=== PATIENT | female | born 1950 | race Caucasian/White ===

== ENCOUNTER → 2021-10-03 11:14 | Outpatient (BNVA) | payer MEDICARE, BC, SELFPAY | PROVIDERS: PCP Family Medicine; Referring Provider Family Medicine; Visit Provider Nurse Practitioner Gerontology | DX: N39.46 Mixed incontinence (principal); E11.9 Type 2 diabetes mellitus without complications | CPT/HCPCS: 99204 ==

== ENCOUNTER → 2021-10-24 13:48 | Outpatient (BNVA) | payer MEDICARE, BC, SELFPAY | PROVIDERS: PCP Family Medicine; Referring Provider Family Medicine; Visit Provider Nurse Practitioner Gerontology | DX: N39.46 Mixed incontinence (principal); Z79.899 Other long term (current) drug therapy | CPT/HCPCS: 99214 ==

== ENCOUNTER → 2022-01-01 15:44 | Outpatient (BNVA) | payer MEDICARE, BC, SELFPAY | PROVIDERS: PCP Family Medicine; Visit Provider Nurse Practitioner Gerontology | DX: N39.46 Mixed incontinence (principal) | CPT/HCPCS: 99214 ==

== ENCOUNTER → 2022-03-13 15:08 | Outpatient (BNVA) | payer MEDICARE, BC, SELFPAY | PROVIDERS: PCP Family Medicine; Referring Provider Family Medicine; Visit Provider Nurse Practitioner Gerontology | DX: N39.46 Mixed incontinence (principal); R31.0 Gross hematuria; N20.0 Calculus of kidney | CPT/HCPCS: 51798; 81003; 99214 ==

== ENCOUNTER 2022-03-13 18:17 | Outpatient (REF) | payer MEDICARE, BC, SELFPAY | END 2022-03-13 18:18 | disposition home or self-care (01) | LOC: LBN 18:17 | PROVIDERS: PCP Family Medicine; Visit Provider Nurse Practitioner Gerontology | DX: N39.0 Urinary tract infection, site not specified (principal); N39.3 Stress incontinence (female) (male) | CPT/HCPCS: 87086 ==

== ENCOUNTER 2022-03-19 01:20 | Outpatient (CLI) | payer MEDICARE, SELFPAY ==
[2022-03-19 09:36] LABS: Source Nasal/Nares
[2022-03-19 11:41] LABS: COVID-19 PCR Negative (Negative)
== END 2022-03-19 01:21 | disposition home or self-care (01) ==
PROVIDERS: PCP Family Medicine; Visit Provider Urology
DX: Z20.822 Contact with and (suspected) exposure to COVID-19 (principal); Z01.818 Encounter for other preprocedural examination
CPT/HCPCS: 87635; U0005

== ENCOUNTER 2022-03-21 11:16 | Day surgery (SDC) | payer MEDICARE, BC, SELFPAY ==
[2022-03-21] VITALS (13 sets, daily range): BP systolic 71–148; BP diastolic 55–84; PULSE 68–87; RESP 14–26; TEMP 36.1–36.5; TEMPC 36.5; O2SAT 94–98; BMI 39.7
--- NOTE | 2022-03-21 11:28 | W.PM.HP.N ---
Date of service: 03/21/22 Time of Service: 11:29 Assessment and Plan Assessment and plan (1) Hydronephrosis, right: Status: Acute Assessment and plan: We suspect that the right hydronephrosis is due to a right ureteral stone. We will plan on cystoscopy, right retrograde pyelogram and possible ureteroscopy. Since she did have gross hematuria, the cystoscopy will also allow us to ensure she has no evidence of bladder cancer. History of Present Illness History of Present Illness Chief Complaint: Right hydronephrosis Narrative: Is a 71-year-old woman who has been followed in our office for issues with urinary incontinence. She has pelvic prolapse and has a pessary in place She was evaluated at another facility for gross hematuria and left-sided flank pain. The CT scan demonstrated a nonobstructing right kidney stone. She then developed some right sided pain and an increased serum creatinine. A renal ultrasound showed new onset of right hydronephrosis which was presumably due to the previously identified right kidney stone migrating into the right ureter. She presents now for anoscopy, right retrograde pyelogram, right ureteroscopy and stone manipulation Review of Systems Narrative: No fevers or chills No vision change or dysphasia Hx diabetes. No thyroid dysfunction Shortness of breath related to COPD. No hemoptysis No chest pain or palpitations Hx GERD. No hepatitis, ulcers, jaundice No seizures, strokes or peripheral neuropathy No bleeding disorders or anemia Chronic back pain, arthralgia. No hx gout PFSH All Active Problems (Updated 03/21/22 @ 11:53 by Suleman Valera MD) Hydronephrosis, right (Acute) Bladder prolapse (Acute) Stress incontinence (female) (male) (Acute) Obesity (Chronic) Mixed stress and urge urinary incontinence (Acute) Medical History (Updated 03/21/22 @ 11:53 by Suleman Valera MD) Depression Diabetes mellitus type 2, diet-controlled Family hx of colon cancer Mother, 85 Generalized osteoarthritis of multiple sites Spine, feet, shoulders GERD (gastroesophageal reflux disease) Glucose intolerance (impaired glucose tolerance) History of cervical dysplasia Hyperlipidemia Obstructive sleep apnea on CPAP Presence of pessary Right shoulder, extensive tendonitis Supraspinatus tear, conservative management Spinal stenosis Urinary incontinence Surgical History Cholecystectomy (10/13/73) Colonoscopy - MAC (07/01/16) History of cataract extraction Family History Mother Colon cancer Diabetes Osteoporosis CAD (coronary artery disease) Father Diabetes PUD (peptic ulcer disease) Brother [facility] (myocardial infarction) Social History Smoking/Tobacco Use Status: Never Smoking risk assessment performed?: Yes Alcohol Intake: current Alcohol Intake frequency: holidays/special occasions only Drug use: Never Substance use type: does not use Do you feel safe at home: Yes Do you feel safe in your relationship?: Yes History History 2 Para 2 Hx # Term Pregnancies 2 Multiple births Hx # Pregnancies 0 Ectopic pregnancies AB induced 0 Hx Number of Living Children 2 AB spontaneous 0 Meds Allergies and Home Medications Allergies Allergy/AdvReac Type Severity Reaction Status Date / Time gabapentin AdvReac increased Verified 03/21/22 11:26 falls at higher doses metformin AdvReac gas, Verified 03/21/22 11:26 bloating, diarrhea Home Medications Medication Instructions Recorded Confirmed Type Cymbalta 60 mg capsule,delayed 60 mg PO DAILY 06/04/16 03/21/22 History release (duloxetine) Tylenol 325 mg tablet 650 mg PO Q6H PRN 06/04/16 03/21/22 History (acetaminophen) multivitamin 1 ea PO DAILY 06/04/16 03/21/22 History omeprazole 20 mg capsule,delayed 20 mg PO DAILY 06/04/16 03/21/22 History release pravastatin 40 mg tablet 40 mg PO DAILY 06/04/16 03/21/22 History bupropion HCl 150 mg 24 hr tablet, 150 mg PO QAM 06/26/21 03/21/22 History extended release lisinopril 10 mg tablet 10 mg PO DAILY 06/26/21 03/21/22 History Celebrex 200 mg capsule (celecoxib) 400 mg PO DAILY 08/28/21 03/21/22 History ascorbic acid (vitamin C) 250 mg 1 g PO DAILY 08/28/21 03/21/22 History tablet melatonin 5 mg capsule 5 mg PO HS PRN 08/28/21 03/21/22 History glipizide 5 mg tablet 20 mg PO DAILY 09/17/21 03/21/22 History mirabegron 25 mg tablet,extended 25 mg PO DAILY #28 tabs 01/01/22 03/21/22 Rx release 24 hr (Myrbetriq) tamsulosin 0.4 mg capsule (Flomax) 0.4 mg PO DAILY #7 caps 03/13/22 03/21/22 Rx Exam Const General: cooperative Neck Neck: supple Resp Effort & Inspection: normal respiratory effort Auscultation: clear to auscultation bilaterally Cardio Rate: regular rate Rhythm: regular rhythm GI Inspection: obesity Palpation: soft and no masses Neuro General: patient alert, patient awake and patient oriented x3
--- NOTE | 2022-03-21 11:34 | W.ANESPRE ---
General Info Date of Service Date Performed: 03/21/22 Height: 5 ft 6 in Weight: 111.811 kg Body Mass Index (BMI): 39.7 Surgical Procedure: Operation Date: 03/21/22 13:10 Proposed Procedure Side Surgeon p Cystoscopy/Possible Laser/Retrograde/Ureteroscopy/Possible Stent Right Suleman Valera MD Pre-Op Diagnosis Post-Op Diagnosis Gross hematuria Kidney calculi Meds Allergies and Home Medications Allergies Allergy/AdvReac Type Severity Reaction Status Date / Time gabapentin AdvReac increased Verified 03/21/22 11:26 falls at higher doses metformin AdvReac gas, Verified 03/21/22 11:26 bloating, diarrhea Home Medication Medication Instructions Recorded Cymbalta 60 mg capsule,delayed 60 mg PO DAILY 06/04/16 release (duloxetine) Tylenol 325 mg tablet 650 mg PO Q6H PRN 06/04/16 (acetaminophen) multivitamin 1 ea PO DAILY 06/04/16 omeprazole 20 mg capsule,delayed 20 mg PO DAILY 06/04/16 release pravastatin 40 mg tablet 40 mg PO DAILY 06/04/16 bupropion HCl 150 mg 24 hr tablet, 150 mg PO QAM 06/26/21 extended release lisinopril 10 mg tablet 10 mg PO DAILY 06/26/21 Celebrex 200 mg capsule (celecoxib) 400 mg PO DAILY 08/28/21 ascorbic acid (vitamin C) 250 mg 1 g PO DAILY 08/28/21 tablet melatonin 5 mg capsule 5 mg PO HS PRN 08/28/21 glipizide 5 mg tablet 20 mg PO DAILY 09/17/21 mirabegron 25 mg tablet,extended 25 mg PO DAILY #28 tabs 01/01/22 release 24 hr (Myrbetriq) tamsulosin 0.4 mg capsule (Flomax) 0.4 mg PO DAILY #7 caps 03/13/22 Current Visit Medications: Current Medications Generic Name Dose Route Start Last Admin Trade Name Freq PRN Reason Stop Dose Admin Ringer's Solution 1,000 mls @ 80 mls/hr 03/21/22 06:00 IV 04/19/22 23:59 INFUSION NOAM Cefazolin Sodium/Dextrose 2 gm in 50 mls @ 100 mls/hr 03/21/22 06:00 Ancef Duplex IVPB PREOP NOAM IV Miscellaneous Supplies 1 each 03/21/22 06:00 Iv Access IV 04/19/22 23:59 DIRECTED NOAM Sodium Chloride 0 ml 03/21/22 06:00 Normal Saline Flush 10 Ml Syr IV 04/19/22 23:59 PRN PRN Sodium Chloride 0 ml 03/21/22 06:00 Normal Saline 10 Ml Vial IJ 04/19/22 23:59 DIRECTED PRN Sterile Water 0 ml 03/21/22 06:00 Water,Injection,Sterile 10 Ml Vial IJ 04/19/22 23:59 DIRECTED PRN PFSH Active Problems Active Problems: Problem Status Onset Code Bladder prolapse Stress incontinence (female) (male) N39.3 Obesity E66.9 Mixed stress and urge urinary incontinence N39.46 Medical History Medical History (Updated 03/21/22 @ 11:53 by Suleman Valera MD) Depression Diabetes mellitus type 2, diet-controlled Family hx of colon cancer Mother, 85 Generalized osteoarthritis of multiple sites Spine, feet, shoulders GERD (gastroesophageal reflux disease) Glucose intolerance (impaired glucose tolerance) History of cervical dysplasia Hyperlipidemia Obstructive sleep apnea on CPAP Presence of pessary Right shoulder, extensive tendonitis Supraspinatus tear, conservative management Spinal stenosis Urinary incontinence Surgical History Surgical History Cholecystectomy (10/13/73) Colonoscopy - MAC (07/01/16) History of cataract extraction Tobacco Smoking/Tobacco Use Status: Never Alcohol Alcohol Intake: current Alcohol intake frequency: holidays/special occasions only Substance Use Substance use: Never Substance use type: does not use Prental History History 2 Para 2 Hx # Term Pregnancies 2 Multiple births Hx # Pregnancies 0 Ectopic pregnancies AB induced 0 Hx Number of Living Children 2 AB spontaneous 0 Vital Signs and Lab Results Lab Results Blood Type / Crossmatch: No Data to Display Complete Blood Count: No Data to Display Complete Metabolic Panel: No Data to Display Liver Function Panel: No Data to Display Coagulation Panel: No Data to Display Cardiac Panel: No Data to Display Arterial Blood Gas: No Data to Display Venous Blood Gas: No Data to Display Pancreas Panel: No Data to Display Thyroid Panel: No Data to Display Infectious Disease: Coronavirus (COVID-19)(PCR) Negative (Negative) 03/19/22 08:30 Coronavirus 2019 Source Nasal/Nares 03/19/22 08:30 Blood Cultures: No Data to Display Toxicology Panel: No Data to Display Anesthesia Assessment and Plan Anesthesia History Personal History: No History of Anesthesia Complications Family History: No Family History of Anesthesia Complications Exercise Tolerance Exercise Tolerance: Metabolic Equivalents>4 Pertinent Negatives Pertinent Negatives: No Symptoms of GERD (Controlled with meds, took this am), No Major Cardiovascular Symptoms or Complaints, No Major Pulmonary Symptoms or Complaints and No History of CVA/TIA Cardiac & Pulmonary Exam Cardiac Exam: Normal S1/S2 Heart Sounds Pulmonary Exam: Clear Bilateral Breath Sounds Implantable Cardiac Device Does patient have a Pacemaker or an ICD?: No Airway Exam Known Difficult Airway: No Mallampati Class: 1 Mouth Opening: Normal (> 3cm) Thyromental Distance: Greater than 3 cm Neck Range of Motion: Full ROM Neck Circumference: Normal Teeth Condition: Normal Dentition ASA Classification ASA Score: ASA 2 Emergency Case?: No NPO Status NPO Status: NPO Clears >2 hours, Solids >8 hours Anesthesia Plan Resuscitation Status: Full Code Anesthesia Technique: General Anesthesia Airway Planned: LMA Monitors Used: Standard Monitors
[2022-03-21] MEDS: Lactated Ringers 1,000 ML 80 ML IV (12:17)
[2022-03-21] MEDS: ceFAZolin 2 GM/50 ML BAG IVPB (12:24)
[2022-03-21] MEDS: Lidocaine 2% Jelly 6 ML SYR (12:49)
[2022-03-21] MEDS: Omnipaque 300 MG/ML 50 ML BTL (13:21)
--- NOTE | 2022-03-21 13:22 | DI.RAD_ITS ---
Exam(s) XR RETROGRADE IN OR EXAM: XR RETROGRADE IN OR CLINICAL HISTORY: right kidney calculi. TECHNIQUE: 2D digital imaging was performed. COMPARISON: No exams were available for comparison FINDINGS: Fluoroscopy provided during urologic procedure. See procedure report for details Total fluoroscopy time 23.6 seconds; cumulative dose 9.3655mGy IMPRESSION: DATA REPOSITORY: RADIATION DOSE DELIVERED:
--- NOTE | 2022-03-21 13:27 | W.PM.DSUDISC ---
Discharge Plan Disposition Patient Disposition: HOME Condition: Stable Discharge Details Reason For Visit: ureteroscopy Attending Provider: Suleman Valera Primary Care Provider: Erin Mei Home Meds and New Rx's Prescriptions: New tramadol 50 mg tablet 50 mg PO Q8H PRN (Reason: pain) Qty: 10 0RF No Action ascorbic acid (vitamin C) 250 mg tablet 1 g PO DAILY melatonin 5 mg capsule 5 mg PO HS PRN lisinopril 10 mg tablet 10 mg PO DAILY bupropion HCl 150 mg tablet extended release 24 hr 150 mg PO QAM glipizide 5 mg tablet 20 mg PO DAILY Myrbetriq 25 mg tablet extended release 24 hr 25 mg PO DAILY Qty: 28 0RF Rx Instructions: Samples tamsulosin [Flomax] 0.4 mg capsule 0.4 mg PO DAILY Qty: 7 0RF acetaminophen [Tylenol] 325 MG tablet 650 mg PO Q6H PRN pravastatin 40 MG tablet 40 mg PO DAILY omeprazole 20 MG capsule,delayed release(DR/EC) 20 mg PO DAILY multivitamin 1 EACH capsule 1 ea PO DAILY duloxetine [Cymbalta] 60 MG capsule,delayed release(DR/EC) 60 mg PO DAILY celecoxib [Celebrex] 200 mg capsule 400 mg PO DAILY Discharge Instructions Additional Instructions: no need to strain urine pt has stent in place - expect some visible blood in urine and discomfort with urination my office will call pt to schedule return to operating room to remove stent, repeat ureteroscopy and remove any leftover stone fragments Activity:: Activity as Tolerated Shower/Bathe:: 24 hours Diet:: As Tolerated Discharge Orders Discharge Orders: Discharge Order (Routine); Ordered 03/21/22 Ordered By: Suleman Valera DS: Diagnosis Discharge Diagnosis (1) Hydronephrosis, right: Status: Acute
--- NOTE | 2022-03-21 13:33 | ROE_ITS ---
Date of service: 03/21/22 Time of Service: 13:34 Operative Note Operative Note DATE OF PROCEDURE: 03/21/22 PRE-OP DIAGNOSIS: right hydronephrosis POST-OP DIAGNOSIS: same right ureteral stone PROCEDURE: cystoscopy, right retrograde pyelogram, right ureteroscopy with holmium laser lithotripsy, insert right ureteral stent SURGEON: Suleman Valera ANESTHESIA TYPE: General LMA/ETT Refer to Anesthesia Record ESTIMATED BLOOD LOSS: 20 PATHOLOGY: none sent COMPLICATIONS: None Patient was transported to: PACU Patient's condition: stable Implants: 7 thai by 22 to 30 cm right ureteral stent Indications: This is a 71-year-old woman who initially presented to an outside emergency department with left-sided flank pain. She was identified as having hematuria. She underwent evaluation with a noncontrast CT scan. A nonobstructing 4 mm stone was found in the right kidney. She then developed a right sided pain and a renal ultrasound was performed. She had new onset of right-sided hydronephrosis and what was described as a 7 mm stone in the lower pole of the right kidney. No right ureteral jet was seen. It was presumed that the previously identified right kidney stone had moved into the right ureter. She presents for stone manipulation Findings: Large right distal ureteral stone with hydronephrosis above the level of the stone Procedure Description: The patient was given preoperative IV antibiotics and brought to the operating room on 03/21/2022. After successful induction of general anesthesia, she was placed in the dorsal lithotomy position. Her genitalia was prepped and draped. 2% Xylocaine jelly was instilled into the urethra to act as a local anesthetic. I was unable to pass the 22 [place] cystoscope into the urethra directly, so we dilated the urethra using Pettis sounds. The scope was then passed into the bladder. The bladder was inspected with a 30 degree lens. No bladder tumors or stones were seen. The base of the bladder had descended as is consistent with a cystocele. Both ureteral orifices appeared normal. No blood was seen coming from either side. The right orifice was cannulated with a 6 [place] access catheter. A retrograde pyelogram was obtained by injecting Omnipaque through the access catheter under fluoroscopic guidance. A large filling defect was seen within the right distal ureter. The ureter above the level of this filling defect was dilated. I was then able to pass a guidewire through the access catheter and maneuvered the wire up the remainder of the ureter. Once I did so, a hydronephrotic drip was identified. The cystoscope was removed and a semirigid ureteroscope was introduced. I passed the scope through the urethra and into the right ureteral orifice. I was able to advance the scope and a large yellow stone was visualized within the distal right ureter. The stone was too large to grasp and remove on its own. I partially treated the stone using our holmium laser. We used a 365 holmium lase r fiber with a power setting of 800 and a rate of 8. The stone fragmented quite nicely. Because of the hydronephrotic drip and stone debris, visibility became challenging. I elected to place a ureteral stent and make a plan to return to the operating room for stent removal and repeat ureteroscopy to address any residual fragments. I chose a 7 [place] variable length stent and advanced it over the indwelling wire. The proximal end of the stent was curled in the collecting system and the distal end was curled within the bladder. The positioning of the stent was confirmed both fluoroscopically and cystoscopically. She tolerated the procedure well with no complications.
[2022-03-21] MEDS: Normal Saline 10 ML VIAL IJ (13:46)
[2022-03-21] MEDS: HYDROmorphone 2 MG/ML VIAL IVP ×2 (13:46→14:01)
[2022-03-21] MEDS: Ketorolac 15 MG/ML VIAL IVP (13:54)
[2022-03-21] MEDS: fentaNYL 100 MCG/2 ML VIAL IVP (14:13)
[2022-03-21] MEDS: Phenazopyridine 200 MG TAB PO (14:37)
--- NOTE | 2022-03-21 15:15 | RT.EKG_ITS ---
APPROVED REPORT Exam: Resting ECG Reason for Exam: STAT/Chesp Pain. Patient Location: O HR:71 bpm ECG Measurements Heart Rate 71 AXIS SC 182 P 53 QRSd 98 QRS -4 QT 370 T 34 QTc 402 Conclusion Sinus rhythm...normal P axis, V-rate 60- 99 Normal Electrocardiogram
[2022-03-21] MEDS: Aspirin 81 MG CHEW 324 MG PO (15:36)
--- NOTE | 2022-03-21 16:05 | PDOC.ANES ---
Anesthesia Note Report Anesthesia Note: 15:25 Anesthesia at beside to assess patient for sub-sternal chest pain, reported 05/22. RN ordered EKG and respirtory currently at bedside. Dr. Valera made aware of patient's complaints. Aspirin 325 ordered and administered per record. Case discussed with ER physician, plan to transfer patient to ER for further evaluation. Full verbal report given at ER bedside, patient verbalizes understanding.
--- NOTE | 2022-03-21 16:13 | W.ANESPOSTOP ---
Postoperative Evaluation Date, Time and Location Date Performed: 03/21/22 Time Performed: 15:40 Patient Location: Day Surgery Unit Vital Signs Most Recent Imported Vital Signs: Most Recent Vital Signs Temp Pulse Resp BP Pulse Ox 36.2 C L 71 14 115/72 97 03/21/22 15:33 03/21/22 15:33 03/21/22 15:33 03/21/22 15:33 03/21/22 15:33 Most Recent Manually Entered Vital Signs: Adult Blood Pressure: 115/72 Heart Rate: 71 Respirations: 14 Oxygen Saturation (%): 97 Temperature (C): 36.5 C Pain Score (0-10 Scale): 8 (Chest Pain) Pain Score Most Recent Pain Score: Most Recent Pain Score Pain Level 0 03/21/22 15:33 Assessment Mental Status: Awake (Alert & Oriented to Patient Baseline) Airway and Respiratory Function: Patent airway with normal (patient baseline) respiratory exam Cardiovascular Function: Hemodynamically Stable Hydration Status: Adequately Hydrated Nausea & Vomiting: No Nausea or Vomiting Pain: Pain is Moderate or Severe Postoperative Pain Management: Other (Chest pain, new onset, transfer to ER.) Peripheral Nerve Block: Patient did not receive a nerve block
== END 2022-03-21 15:45 | disposition home or self-care (01) ==
PROVIDERS: PCP Family Medicine; Visit Provider Urology
PROC: (CPT 52356; principal; 2022-03-21 13:00)
DX: N13.2 Hydronephrosis with renal and ureteral calculous obstruction (principal); E11.9 Type 2 diabetes mellitus without complications; K21.9 Gastro-esophageal reflux disease without esophagitis; G47.33 Obstructive sleep apnea (adult) (pediatric)
CPT/HCPCS: 52356; 74420; 93005; 93010; J0690; J1885; J3010; Q9967

== ENCOUNTER 2022-03-21 15:37 | Observation (INO) | payer MEDICARE, BC, SELFPAY ==
[2022-03-21] VITALS (32 sets, daily range): BP systolic 102–144; BP diastolic 42–100; PULSE 70–79; RESP 14–27; TEMP 36.4–37.4; O2SAT 95–98
--- NOTE | 2022-03-21 15:30 | RT.EKG_ITS ---
APPROVED REPORT Exam: Resting ECG Reason for Exam: CHEST PAIN Patient Location: E HR:69 bpm ECG Measurements Heart Rate 69 AXIS NV 183 P 48 QRSd 100 QRS -15 QT 371 T 30 QTc 398 Conclusion Sinus rhythm...normal P axis, V-rate 60- 99. Sinus. No STEMI. I have reviewed and interpreted ECG and agree with software generated interpretation.
--- NOTE | 2022-03-21 15:45 | DI.RAD_ITS ---
Exam(s) XR PORTABLE CHEST AP EXAM: XR PORTABLE CHEST AP CLINICAL HISTORY: chest pain. TECHNIQUE: 2D digital imaging was performed. COMPARISON: No exams were available for comparison FINDINGS: Single AP portable view. Right shoulder reverse prosthesis noted. Heart size is upper normal. The mediastinum is not widened. Lungs are clear. No infiltrates nor obvious pleural effusions. IMPRESSION: No acute pulmonary findings on this single AP portable view of the chest. DATA REPOSITORY: RADIATION DOSE DELIVERED: All CT scans at this facility use at least one of these dose optimization techniques: automated exposure control; mA and/or kV adjustment per patient size (includes targeted e xams where dose is matched to clinical indication); or iterative reconstruction.
--- NOTE | 2022-03-21 16:09 | ED.GENADUL_ITS ---
Discharge Plan Disposition Patient Disposition: [facility] INPATIENT Condition: Stable Discharge Details Clinical Impression: Chest pain, Ureterolithiasis, Post surgical complication Primary Care Provider: Erin Mei ED Provider: Ashley Cancino Home Meds and New Rx's Prescriptions: Continued ascorbic acid (vitamin C) 250 mg tablet 1 g PO DAILY melatonin 5 mg capsule 5 mg PO HS PRN lisinopril 10 mg tablet 10 mg PO DAILY bupropion HCl 150 mg tablet extended release 24 hr 150 mg PO QAM glipizide 5 mg tablet 20 mg PO DAILY Myrbetriq 25 mg tablet extended release 24 hr 25 mg PO DAILY Qty: 28 0RF Rx Instructions: Samples tamsulosin [Flomax] 0.4 mg capsule 0.4 mg PO DAILY Qty: 7 0RF acetaminophen [Tylenol] 325 MG tablet 650 mg PO Q6H PRN pravastatin 40 MG tablet 40 mg PO DAILY omeprazole 20 MG capsule,delayed release(DR/EC) 20 mg PO DAILY multivitamin 1 EACH capsule 1 ea PO DAILY duloxetine [Cymbalta] 60 MG capsule,delayed release(DR/EC) 60 mg PO DAILY celecoxib [Celebrex] 200 mg capsule 400 mg PO DAILY tramadol 50 mg tablet 50 mg PO Q8H PRN (Reason: pain) Qty: 10 0RF Medical Decision Making Patient with 2 negative troponins and 2 EKGs do not show acute abnormality Chest x-ray without acute abnormality I did order a D-dimer which was elevated, I ordered a dimer because patient is perioperative and has an elevated creatinine at baseline and so this was a baseline screening tool Creatinine is unfortunately 2 and patient's D-dimer was 20-40 they were unable to perform CTA in the emergency department and VQ scan will unlikely be able to be performed until the following day I do not think patient is in urgent need of imaging as she has not hypoxic, tachycardic, and she has no evidence of DVT clinically My suspicion is quite low but she has PE more concern for cardiac etiology of patient's symptoms given her heart score of 5 Patient has remained asymptomatic in terms of hypotension and chest pain Shared supply with 481 mg aspirin in the OR and therefore this was not repeated She has been pain-free throughout her encounter She has never had stress test She agreeable to admission at this time She is full CODE STATUS Her vitals have been stable in the emergency department I did specifically discussed with Dr. Khalil the admitting hospitalist regarding anticoagulating the patient and given her gross hematuria and postoperative period I think anticoagulating her for PE risk outweighs the benefit at this time and she is able to be closely observed in the hospital I did make several attempts to contact Dr Russell, unfortunately he was unavailable to provide consultation this evening Therefore we will not anticoagulate her at this time and she will have imaging at the discretion of the hospitalist tomorrow At this time she stated her admission Medical Records Medical records reviewed: Yes I reviewed the patient's medical records. Lab Data Lab results reviewed: Yes I reviewed the patient's lab results. HPI General Date/Time Provider Initiated Documentation: 03/21/22 15:42 . HPI Narrative: This 71-year-old female with history of ureterolithiasis, hydronephrosis, diabetes, hypertension, hyperlipidemia presents with report of several episodes of hypotension with subsequent chest pressure shortly after surgery. Patient had cystoscopy with right ureteroscopy with retrograde pyelogram stent on the right today. She received propofol reportedly. In the recovery phase she experienced some episodes of hypotension which resolved with fluids but then subsequent chest pain. She reports this is more of a pressure sensation. She denies any shortness of breath. She denies any pleuritic pain associated. She denies any calf pain or swelling or history of coagulopathy. Has not had chest pain for years reportedly. Denies prior stress test in the past or known coronary artery disease. Does not smoke, drink, or use any illicit drugs. Related Data Home Medications Medication Instructions Recorded Confirmed Cymbalta 60 mg capsule,delayed 60 mg PO DAILY 06/04/16 03/21/22 release (duloxetine) Tylenol 325 mg tablet 650 mg PO Q6H PRN 06/04/16 03/21/22 (acetaminophen) multivitamin 1 ea PO DAILY 06/04/16 03/21/22 omeprazole 20 mg capsule,delayed 20 mg PO DAILY 06/04/16 03/21/22 release pravastatin 40 mg tablet 40 mg PO DAILY 06/04/16 03/21/22 bupropion HCl 150 mg 24 hr tablet, 150 mg PO QAM 06/26/21 03/21/22 extended release lisinopril 10 mg tablet 10 mg PO DAILY 06/26/21 03/21/22 Celebrex 200 mg capsule (celecoxib) 400 mg PO DAILY 08/28/21 03/21/22 ascorbic acid (vitamin C) 250 mg 1 g PO DAILY 08/28/21 03/21/22 tablet melatonin 5 mg capsule 5 mg PO HS PRN 08/28/21 03/21/22 glipizide 5 mg tablet 20 mg PO DAILY 09/17/21 03/21/22 mirabegron 25 mg tablet,extended 25 mg PO DAILY #28 tabs 01/01/22 03/21/22 release 24 hr (Myrbetriq) tamsulosin 0.4 mg capsule (Flomax) 0.4 mg PO DAILY #7 caps 03/13/22 03/21/22 tramadol 50 mg tablet 50 mg PO Q8H PRN pain #10 tabs 03/21/22 03/21/22 Previous Rx's Medication Instructions Recorded mirabegron 25 mg tablet,extended 25 mg PO DAILY #28 tabs 01/01/22 release 24 hr (Myrbetriq) tamsulosin 0.4 mg capsule (Flomax) 0.4 mg PO DAILY #7 caps 03/13/22 tramadol 50 mg tablet 50 mg PO Q8H PRN pain #10 tabs 03/21/22 Allergies Allergy/AdvReac Type Severity Reaction Status Date / Time gabapentin AdvReac increased Verified 03/21/22 15:47 falls at higher doses metformin AdvReac gas, Verified 03/21/22 15:47 bloating, diarrhea General Stated Complaint: Chest Pain ELIANE: 3 Review of Systems All systems reviewed & are unremarkable except as noted in HPI and below PFSH All Active Problems (Updated 03/21/22 @ 20:42 by KALEE Jo) Chest pain (Acute) Ureterolithiasis (Acute) Post surgical complication (Acute) Hydronephrosis, right (Acute) Bladder prolapse (Acute) Stress incontinence (female) (male) (Acute) Obesity (Chronic) Mixed stress and urge urinary incontinence (Acute) Medical History (Updated 03/21/22 @ 20:42 by KALEE Jo) Depression Diabetes mellitus type 2, diet-controlled Family hx of colon cancer Mother, 85 Generalized osteoarthritis of multiple sites Spine, feet, shoulders GERD (gastroesophageal reflux disease) Glucose intolerance (impaired glucose tolerance) History of cervical dysplasia Hyperlipidemia Obstructive sleep apnea on CPAP Presence of pessary Right shoulder, extensive tendonitis Supraspinatus tear, conservative management Spinal stenosis Urinary incontinence Surgical History Cholecystectomy (10/13/73) Colonoscopy - MAC (07/01/16) History of cataract extraction Family History Mother Colon cancer Diabetes Osteoporosis CAD (coronary artery disease) Father Diabetes PUD (peptic ulcer disease) Brother [place] (myocardial infarction) Social History Smoking/Tobacco Use Status: Never Smoking risk assessment performed?: Yes Alcohol Intake: current Alcohol Intake frequency: holidays/special occasions only Drug use: Never Substance use type: does not use Do you feel safe at home: Yes Do you feel safe in your relationship?: Yes History History 2 Para 2 Hx # Term Pregnancies 2 Multiple births Hx # Pregnancies 0 Ectopic pregnancies AB induced 0 Hx Number of Living Children 2 AB spontaneous 0 Exam Const General: cooperative, comfortable and no acute distress HENMT Head: normal to inspection Eyes Pupils: PERRL Chest Chest: normal inspection of the chest Other: No reproducible chest wall pain Resp Effort & Inspection: normal respiratory effort Auscultation: clear to auscultation bilaterally Cardio Rate: regular rate Rhythm: regular rhythm Other: Distal pulses intact GI Inspection: normal to inspection Other: Nontender abdominal exam, no CVA tenderness Skin General skin exam: no rashes or lesions noted Neuro General: patient alert and patient oriented x3 Extrem Other: No calf swelling or tenderness, distal pulses intact Course Vital Signs Vital signs: Vital Signs Temperature 36.4 C L 03/21/22 15:41 Pulse 76 03/21/22 15:41 Respiratory Rate 16 03/21/22 15:41 Blood Pressure 122/100 H 03/21/22 15:41 Pulse Oximetry 98 03/21/22 15:41 Temperature 36.4 C L 03/21/22 15:41 Pulse 76 03/21/22 15:41 Respiratory Rate 16 03/21/22 15:48 Respiratory Effort 03/21/22 15:48 Respiratory Depth Normal 03/21/22 15:48 Respiratory Pattern Normal 03/21/22 15:48 Blood Pressure 122/100 H 03/21/22 15:41 Pulse Oximetry 98 03/21/22 15:41
[2022-03-21 16:42] LABS: Abs Immature Grans 0.06 10^3/uL (0.0-0.06); Absolute Basophil Count 0.04 10^3/uL (0.0-0.2); Absolute Eosinophil Count 0.52 10^3/uL (0.0-0.7); Basophils % 0.3; Eosinophils % 3.9; HCT 36.8 % (36.0-46.0); HGB 11.7 g/dL (11.2-15.7); Immature Grans % 0.4; Lymphocytes % 14.6; MCH 27.9 pg (27.0-33.0); MCHC 31.8 % (32.0-36.0); MCV 88 fL (80-95); MPV 9.2 fL (8.0-11.0); Monocytes % 4.2; Neutrophils % 76.6; Platelet Count 316 10^3/uL (130-400); RDW 13.2 % (11.7-14.6); RDW-SD 42.1 fL; WBC 13.45 10^3/uL (4.4-10.8)
[2022-03-21 16:53] LABS: Absolute Lymphocyte Count 1.96 10^3/uL (1.2-3.4); Absolute Monocyte Count 0.56 10^3/uL (0.1-0.8)
[2022-03-21 16:58] LABS: ALT 54 U/L (14-59); AST 76 U/L (15-37); Albumin 2.9 g/dL (3.4-5.0); Alkaline Phosphatase 203 U/L (46-116); Anion Gap 8.7 mmol/L (3-11); BUN 35 mg/dL (7-18); Bilirubin, Total 0.3 mg/dL (0.2-1.0); CO2 26.3 mmol/L (21.0-32.0); Calcium 9.2 mg/dL (8.5-10.1); Chloride 104 mmol/L (98-107); Estimated GFR 24.49 (mL/min/1.73m2); Glucose 158 mg/dL (74-106); Magnesium 1.9 mg/dL (1.8-2.4); Potassium 4.8 mmol/L (3.5-5.1); Sodium 139 mmol/L (136-145); Total Protein 7.1 g/dL (6.4-8.2); Troponin I < 50 ng/L (<or=60)
[2022-03-21 17:15] LABS: D-Dimer 2251 ng/mlFEU (<500)
--- NOTE | 2022-03-21 18:15 | RT.EKG_ITS ---
APPROVED REPORT Exam: Resting ECG Reason for Exam: repeat Patient Location: E HR:70 bpm ECG Measurements Heart Rate 70 AXIS IN 188 P 56 QRSd 97 QRS -15 QT 367 T 33 QTc 397 Conclusion Sinus rhythm...normal P axis, V-rate 60- 99. Sinus. No STEMI. I have reviewed and interpreted ECG and agree with software generated interpretation.
[2022-03-21 19:01] LABS: Troponin I < 50 ng/L (<or=60)
--- NOTE | 2022-03-21 19:45 | HPE_ITS ---
Date of service: 03/21/22 Time of Service: 19:45 Assessment and Plan Assessment and plan (1) Chest pain: Start date: 03/21/22 Status: Acute Assessment and plan: This is a 71-year-old lady who had general anesthesia for procedure treating hydronephrosis on the right side with ureteral lithiasis status post stent placement with gross hematuria after procedure. Postoperatively the patient had onset of chest pressure which was severe without significant radiation and no associated diaphoresis but some shortness of breath. He denied nausea. He was found to be slightly dehydrated and IV fluid resuscitation helped her symptoms especially with associated hypotension with episode. She did not have a true syncopal episode. Patient's troponins were negative and she had no further chest pain with observation. She was admitted for continued observation and trending troponins as well as attempting to have further studies for PE rule out which could not be treated mainly because of gross hematuria though she did have a positive D-dimer which may not be significant but needs to be addressed. (2) Ureterolithiasis: Status: Chronic Assessment and plan: With right hydronephrosis now status post stenting with gross hematuria. Dr. Valera is following. (3) DANN (acute kidney injury): Start date: 03/21/22 Status: Acute Assessment and plan: Patient appears to be slightly dehydrated which may have caused some of her symptoms with hypotension. This could be exacerbated by general anesthesia. IV hydration and trend labs hopefully improving creatinine to allow CT of the chest to rule out PE. (4) Hydronephrosis, right: Status: Chronic Assessment and plan: Now status post stenting with gross hematuria. Dr. Valera is following. (5) Diabetes mellitus type 2, diet-controlled: Assessment and plan: Patient chronically is on oral therapy with this being held during the hospital stay trending glucometers before meals and at bedtime with short acting insulin. (6) HTN (hypertension): Status: Chronic Assessment and plan: Chronically on low-dose lisinopril which will be held while observing blood pressure postoperatively with IV hydration. History of Present Illness History of Present Illness Chief Complaint: Postoperative hypotension with chest pressure Narrative: This 71-year-old female with history of ureterolithiasis, hydronephrosis, diabetes, hypertension, hyperlipidemia presents with report of several episodes of hypotension with subsequent chest pressure shortly after surgery.? Patient had cystoscopy with right ureteroscopy with retrograde pyelogram stent on the right the day of admission.? She received propofol for general anesthesia.? In the recovery phase she experienced some episodes of hypotension which resolved with fluids but then subsequent chest pain/pressure and feeling flushed as if she was going to pass out but did not have syncope.? She denies any shortness of breath.? She denies any discomfort with deep breathing such as pleuritic pain.? She denies any calf pain or swelling or history of coagulopathy. Patient denies any previous cardiovascular disease or chest pain and has never had a heart attack though she has risk factors including diabetes, obesity, hyperlipidemia and hypertension. Patient is a non-smoker and does not use any illicit drugs. She does have gross hematuria with stenting of her right ureter with ureteral lithiasis the day of admission. She did have a positive D-dimer in the ED but further testing cannot be done because of elevated creatinine and ultrasound capabilities were not available. There is no family history of hypercoagulable states. 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 She presently is less active. As stated she is overweight. In the ED she was resuscitated with IV fluids and had no further episodes of discomfort with negative cardiac evaluation including troponins. She will be admitted for observation for IV hydration and trending troponins as well as considering CTA chest and venous Dopplers of lower extremities in the morning if available. She could be at risk for PE but heparinization or anticoagulation at this time is contraindicated with her gross hematuria with stenting and her presentation being more likely hypotension with DANN and slight dehydration with near syncope. A very pleasant static. Dr. Valera was called as to whether she could have heparinization or Lovenox treatment but was not available and decision of risk-benefit was made to not anticoagulate but to use sequential stockings for now with close observation. Patient is a full code. Review of Systems Narrative: 13 point review of systems otherwise unrevealing or stable. Patient is usually physically active at home. Patient is usually physically active at home without restriction. [facility] All Active Problems (Updated 03/22/22 @ 06:34 by Patric Khalil) DANN (acute kidney injury) (Acute) HTN (hypertension) (Chronic) Chest pain (Acute) Ureterolithiasis (Chronic) Post surgical complication (Acute) Hydronephrosis, right (Chronic) Bladder prolapse (Acute) Stress incontinence (female) (male) (Acute) Obesity (Chronic) Mixed stress and urge urinary incontinence (Acute) Medical History Depression Diabetes mellitus type 2, diet-controlled Family hx of colon cancer Mother, 85 Generalized osteoarthritis of multiple sites Spine, feet, shoulders GERD (gastroesophageal reflux disease) Glucose intolerance (impaired glucose tolerance) History of cervical dysplasia Hyperlipidemia Obstructive sleep apnea on CPAP Presence of pessary Right shoulder, extensive tendonitis Supraspinatus tear, conservative management Spinal stenosis Syncope Urinary incontinence Surgical History Cholecystectomy (10/13/73) Colonoscopy - MAC (07/01/16) History of cataract extraction Family History Mother Colon cancer Diabetes Osteoporosis CAD (coronary artery disease) Father Diabetes PUD (peptic ulcer disease) Brother [place] (myocardial infarction) Social History Smoking/Tobacco Use Status: Never Smoking risk assessment performed?: Yes Alcohol Intake: current Alcohol Intake frequency: holidays/special occasions only Drug use: Never Substance use type: does not use Do you feel safe at home: Yes Do you feel safe in your relationship?: Yes History History 2 Para 2 Hx # Term Pregnancies 2 Multiple births Hx # Pregnancies 0 Ectopic pregnancies AB induced 0 Hx Number of Living Children 2 AB spontaneous 0 Meds Allergies and Home Medications Allergies Allergy/AdvReac Type Severity Reaction Status Date / Time gabapentin AdvReac increased Verified 03/21/22 15:47 falls at higher doses metformin AdvReac gas, Verified 03/21/22 15:47 bloating, diarrhea Home Medications Medication Instructions Recorded Confirmed Type Cymbalta 60 mg capsule,delayed 60 mg PO DAILY 06/04/16 03/21/22 History release (duloxetine) Tylenol 325 mg tablet 650 mg PO Q6H PRN 06/04/16 03/21/22 History (acetaminophen) multivitamin 1 ea PO DAILY 06/04/16 03/21/22 History omeprazole 20 mg capsule,delayed 20 mg PO DAILY 06/04/16 03/21/22 History release pravastatin 40 mg tablet 40 mg PO DAILY 06/04/16 03/21/22 History bupropion HCl 150 mg 24 hr tablet, 150 mg PO QAM 06/26/21 03/21/22 History extended release lisinopril 10 mg tablet 10 mg PO DAILY 06/26/21 03/21/22 History Celebrex 200 mg capsule (celecoxib) 400 mg PO DAILY 08/28/21 03/21/22 History ascorbic acid (vitamin C) 250 mg 1 g PO DAILY 08/28/21 03/21/22 History tablet melatonin 5 mg capsule 5 mg PO HS PRN 08/28/21 03/21/22 History glipizide 5 mg tablet 20 mg PO DAILY 09/17/21 03/21/22 History mirabegron 25 mg tablet,extended 25 mg PO DAILY #28 tabs 01/01/22 03/21/22 Rx release 24 hr (Myrbetriq) tamsulosin 0.4 mg capsule (Flomax) 0.4 mg PO DAILY #7 caps 03/13/22 03/21/22 Rx tramadol 50 mg tablet 50 mg PO Q8H PRN pain #10 tabs 03/21/22 03/21/22 Rx Exam Narrative Exam Narrative: General: Patient is moderately obese, flattened affect but good eye contact, alert and oriented to person, place and time. She is in no acute distress. HEENT: Normocephalic, eyes with pupils equal and reactive light symmetrically, extraocular movement intact and sclera anicteric. Oropharynx slightly dry mucosa and fair dentition. Neck: Supple without JVD. Back: Stooped posture without CVA tenderness. Lungs: Fair aeration and clear to auscultation with no rales or rhonchi. No expiratory wheeze. Breast: Exam deferred. Heart: Regular rate and rhythm with no murmurs or gallops appreciated. Abdomen: Obese contour, soft and nontender to palpation with no palpable hepatosplenomegaly. Bowel sounds positive. No tenderness over the right kidney and no palpable masses. Genitalia/rectal: Exam deferred. Extremities: Without clubbing, cyanosis or pitting edema. Peripheral pulses intact. No joint swelling. Negative Homans' sign bilaterally. Skin: Normal color, warm and dry. Neuro: Cranial nerves II through XII grossly intact, no focalizing motor def icit. No tremor. DTRs physiologic and symmetrical. Psych: Flattened affect with slight depressed mood. Slow monotonous tone to voice. No abnormal thought processes. Remote and recent memory intact. Results Imaging Imaging Studies: EXAM:? XR PORTABLE CHEST AP CLINICAL HISTORY: ? chest pain. ? TECHNIQUE:? 2D digital imaging was performed. COMPARISON:? No exams were available for comparison FINDINGS: Single AP portable view. Right shoulder reverse prosthesis noted. Heart size is upper normal.? The mediastinum is not widened. Lungs are clear.? No infiltrates nor obvious pleural effusions. IMPRESSION: No acute pulmonary findings on this single AP portable view of the chest. Labs Result diagrams: 03/21/22 16:30 03/21/22 16:30 Labs: Laboratory Results - last 24 hr 03/21/22 03/21/22 03/21/22 16:30 16:30 16:30 WBC 13.45 H RBC 4.20 Hgb 11.7 Hct 36.8 MCV 88 MCH 27.9 MCHC 31.8 L RDW 13.2 Plt Count 316 MPV 9.2 Immature Gran % 0.4 Neutrophils % 76.6 Lymphocytes % 14.6 Monocytes % 4.2 Eosinophils % 3.9 Basophils % 0.3 Nucleated RBC % 0.0 Absolute Neutrophils 10.30 H Absolute Lymphocytes 1.96 Absolute Monocytes 0.56 Absolute Eosinophils 0.52 Absolute Basophils 0.04 D-Dimer 2251 H Sodium 139 Potassium 4.8 Chloride 104 Carbon Dioxide 26.3 Anion Gap 8.7 BUN 35 H Creatinine 2.0 H Estimated GFR/1.73 m2 24.49 Glucose 158 H Calcium 9.2 Magnesium 1.9 Total Bilirubin 0.3 AST 76 H ALT 54 Alkaline Phosphatase 203 H Troponin I < 50 Total Protein 7.1 Albumin 2.9 L 03/21/22 18:36 WBC RBC Hgb Hct MCV MCH MCHC RDW Plt Count MPV Immature Gran % Neutrophils % Lymphocytes % Monocytes % Eosinophils % Basophils % Nucleated RBC % Absolute Neutrophils Absolute Lymphocytes Absolute Monocytes Absolute Eosinophils Absolute Basophils D-Dimer Sodium Potassium Chloride Carbon Dioxide Anion Gap BUN Creatinine Estimated GFR/1.73 m2 Glucose Calcium Magnesium Total Bilirubin AST ALT Alkaline Phosphatase Troponin I < 50 Total Protein Albumin Last Vital Signs Temp 36.4 C L 03/21/22 15:41 Pulse 70 03/21/22 19:01 Resp 19 03/21/22 19:10 BP 136/65 03/21/22 19:01 Pulse Ox 96 03/21/22 19:10
[2022-03-21 20:47] LABS: Source Nasal/Nares
[2022-03-21 21:10] LABS: Prothrombin Time 9.9 sec (9.3-11.0)
[2022-03-21 21:16] LABS: TSH (W/Ref FT4) 1.85 uIU/mL (0.36-3.74)
[2022-03-21 21:38] LABS: COVID-19 PCR Negative (Negative)
[2022-03-21] MEDS: Normal Saline 1,000 ML 125 ML IV (21:46)
[2022-03-21] MEDS: Normal Saline Flush 10 ML SYR (21:51)
[2022-03-22] VITALS (7 sets, daily range): BP systolic 104–133; BP diastolic 57–77; PULSE 72–95; RESP 16–18; TEMP 37.1–37.6; O2SAT 96–97
[2022-03-22 01:22] LABS: Troponin I < 50 ng/L (<or=60)
[2022-03-22] MEDS: Normal Saline 1,000 ML 125 ML IV (06:03)
[2022-03-22 06:52] LABS: Abs Immature Grans 0.03 10^3/uL (0.0-0.06); Absolute Basophil Count 0.05 10^3/uL (0.0-0.2); Absolute Eosinophil Count 0.58 10^3/uL (0.0-0.7); Absolute Lymphocyte Count 1.57 10^3/uL (1.2-3.4); Absolute Monocyte Count 0.56 10^3/uL (0.1-0.8); Absolute Neutrophil Count 7.08 10^3/uL (1.2-6.7); Basophils % 0.5; Eosinophils % 5.9; HCT 34.8 % (36.0-46.0); HGB 11.2 g/dL (11.2-15.7); Immature Grans % 0.3; Lymphocytes % 15.9; MCH 27.8 pg (27.0-33.0); MCHC 32.2 % (32.0-36.0); MCV 86 fL (80-95); MPV 9.2 fL (8.0-11.0); Monocytes % 5.7; Neutrophils % 71.7; Platelet Count 310 10^3/uL (130-400); RBC 4.03 10^6/uL (3.93-5.22); RDW-SD 41.1 fL; WBC 9.87 10^3/uL (4.4-10.8)
--- NOTE | 2022-03-22 07:00 | DI.US_ITS ---
Exam(s) US EXTREMITY VENOUS BI EXAM: US EXTREMITY VENOUS BI CLINICAL HISTORY: Positive D-dimer with hypotension postoperatively. TECHNIQUE: Bilateral lower extremity venous ultrasound performed using grayscale, color-flow, and sp ectral Doppler analysis. COMPARISON: No exams were available for comparison FINDINGS: The bilateral common femoral, femoral and popliteal veins demonstrate normal compressibility, augment ation, and color Doppler. The posterior tibial veins are patent. The saphenofemoral junctions are unr emarkable. There is no evidence of a Mora's cyst. The soft tissues are unremarkable. IMPRESSION: Right: Negative for DVT Left: Negative for DVT DATA REPOSITORY:
[2022-03-22 07:13] LABS: Troponin I < 50 ng/L (<or=60)
[2022-03-22 07:15] LABS: ALT 75 U/L (14-59); AST 58 U/L (15-37); Albumin 2.8 g/dL (3.4-5.0); Alkaline Phosphatase 222 U/L (46-116); Anion Gap 8.4 mmol/L (3-11); BUN 32 mg/dL (7-18); Bilirubin, Total 0.3 mg/dL (0.2-1.0); CO2 25.6 mmol/L (21.0-32.0); CREATININE 1.8 mg/dL (0.55-1.02); Calcium 8.9 mg/dL (8.5-10.1); Chloride 106 mmol/L (98-107); Estimated GFR 27.66 (mL/min/1.73m2); Glucose 157 mg/dL (74-106); Potassium 4.7 mmol/L (3.5-5.1); Sodium 140 mmol/L (136-145); Total Protein 6.7 g/dL (6.4-8.2)
--- NOTE | 2022-03-22 07:20 | W.PM.PROGNOT ---
Date of Service Date of service: 03/22/22 Time of Service: 07:20 Assessment and Plan Assessment and plan (1) Chest pain: Status: Acute Assessment and plan: There are no contraindications to anticoagulation after endoscopic surgery if that is in the patient's best interest We will need to make a return trip to the operating room in a few weeks. After speaking with the anesthesia providers yesterday, the patient would require an outpatient stress test and possibly see a trustee of estate before undergoing her next procedure. Subjective Subjective Interval history since last seen: This patient underwent a surgical procedure yesterday. She had some chest pressure and episodes of hypotension that responded to fluids yesterday postoperatively. With concerns for a postoperative cardiac event, she was brought to the emergency department for serial cardiac enzymes and ultimately admitted to the hospital. She receives her outpatient medical care in [place], [place]. Her previous emergency department visits and imaging studies have been at [facility]. We have some of these records in our outpatient EMR, so I am hoping to fill in some of her historical gaps. She had been under our care previously for urinary incontinence and has been receiving Myrbetriq and pelvic floor physical therapy. She has a pessary in place for pelvic prolapse. She initially presented to her primary care provider with gross hematuria on 03/06/2022. A CT urogram was planned, but was not accomplished because of the lack of IV contrast availability and an elevated serum creatinine of 2.2. A noncontrast CT was read as having nonobstructing small kidney stones but no ureteral stones. In retrospect, there was likely a nonobstructing right ureteral stone present. The patient then presented to the [facility] emergency department with right flank pain. An ultrasound demonstrated right hydronephrosis which I presume is related to the right ureteral stone becoming obstructing. Our office received a call from the primary care provider on 03/13/2022 who stated that the patient's renal function had worsened significantly over a month. I do not have access to a baseline serum creatinine, but as I mentioned previously, her serum creatinine at that time was 2.2. Typically, we do not see a creatinine bump from a unilateral obstruction unless the contralateral kidney is abnormal, but her PCP did not intend on working up the elevated creatinine further until after her hydronephrosis was treated. The patient's urine culture (both at [facility] and here at [facility]) was negative and she was brought to the operating room yesterday for our procedure. She was given a single dose of preoperative IV Ancef. Her procedure was done cystoscopically and ureteroscopically, so no incisions were made. It is common to have blood in the urine following these procedures, but anticoagulation is not contraindicated. In the patient's PCP records, there are indications of the following: Diabetes mellitus (A1c on 03/06/2022 was 7.1) GERD Obstructive sleep apnea on CPAP Hyperlipidemia Depression Spinal stenosis Generalized osteoarthritis COVID infection 08/2021 with MAB treatment Her prior surgeries include: Cholecystectomy in 1973 Right cataract 07/2016 L3-4 and L4-5 laminectomy 11/2019 D&C with hysteroscopy 02/2020 Right reverse shoulder arthroplasty with tenodesis 04/2020 Objective Last Vital Signs Temp 37.6 C H 03/22/22 03:15 Pulse 74 03/22/22 03:15 Resp 18 03/22/22 03:15 BP 128/57 L 03/22/22 03:15 Pulse Ox 96 03/22/22 03:15 Laboratory Results - last 24 hr 03/21/22 03/21/22 03/21/22 16:30 16:30 16:30 WBC 13.45 H RBC 4.20 Hgb 11.7 Hct 36.8 MCV 88 MCH 27.9 MCHC 31.8 L RDW 13.2 Plt Count 316 MPV 9.2 Immature Gran % 0.4 Neutrophils % 76.6 Lymphocytes % 14.6 Monocytes % 4.2 Eosinophils % 3.9 Basophils % 0.3 Nucleated RBC % 0.0 Absolute Neutrophils 10.30 H Absolute Lymphocytes 1.96 Absolute Monocytes 0.56 Absolute Eosinophils 0.52 Absolute Basophils 0.04 PT INR D-Dimer 2251 H Sodium 139 Potassium 4.8 Chloride 104 Carbon Dioxide 26.3 Anion Gap 8.7 BUN 35 H Creatinine 2.0 H Estimated GFR/1.73 m2 24.49 Glucose 158 H Calcium 9.2 Magnesium 1.9 Total Bilirubin 0.3 AST 76 H ALT 54 Alkaline Phosphatase 203 H Troponin I < 50 Total Protein 7.1 Albumin 2.9 L TSH COVID-19 Source SARS-CoV-2 (PCR) 03/21/22 03/21/22 03/21/22 18:36 20:40 20:40 WBC RBC Hgb Hct MCV MCH MCHC RDW Plt Count MPV Immature Gran % Neutrophils % Lymphocytes % Monocytes % Eosinophils % Basophils % Nucleated RBC % Absolute Neutrophils Absolute Lymphocytes Absolute Monocytes Absolute Eosinophils Absolute Basophils PT 9.9 INR 1.0 D-Dimer Sodium Potassium Chloride Carbon Dioxide Anion Gap BUN Creatinine Estimated GFR/1.73 m2 Glucose Calcium Magnesium Total Bilirubin AST ALT Alkaline Phosphatase Troponin I < 50 Total Protein Albumin TSH 1.85 COVID-19 Source SARS-CoV-2 (PCR) 03/21/22 03/22/22 03/22/22 20:40 01:00 06:18 WBC RBC Hgb Hct MCV MCH MCHC RDW Plt Count MPV Immature Gran % Neutrophils % Lymphocytes % Monocytes % Eosinophils % Basophils % Nucleated RBC % Absolute Neutrophils Absolute Lymphocytes Absolute Monocytes Absolute Eosinophils Absolute Basophils PT INR D-Dimer Sodium Potassium Chloride Carbon Dioxide Anion Gap BUN Creatinine Estimated GFR/1.73 m2 Glucose Calcium Magnesium Total Bilirubin AST ALT Alkaline Phosphatase Troponin I < 50 < 50 Total Protein Albumin TSH COVID-19 Source Nasal/Nares SARS-CoV-2 (PCR) Negative 03/22/22 06:18 WBC 9.87 RBC 4.03 Hgb 11.2 Hct 34.8 L MCV 86 MCH 27.8 MCHC 32.2 RDW 13.0 Plt Count 310 MPV 9.2 Immature Gran % 0.3 Neutrophils % 71.7 Lymphocytes % 15.9 Monocytes % 5.7 Eosinophils % 5.9 Basophils % 0.5 Nucleated RBC % 0.0 Absolute Neutrophils 7.08 H Absolute Lymphocytes 1.57 Absolute Monocytes 0.56 Absolute Eosinophils 0.58 Absolute Basophils 0.05 PT INR D-Dimer Sodium Potassium Chloride Carbon Dioxide Anion Gap BUN Creatinine Estimated GFR/1.73 m2 Glucose Calcium Magnesium Total Bilirubin AST ALT Alkaline Phosphatase Troponin I Total Protein Albumin TSH COVID-19 Source SARS-CoV-2 (PCR)
--- NOTE | 2022-03-22 08:15 | RT.EKG_ITS ---
APPROVED REPORT Exam: Resting ECG Reason for Exam: follow up chest pain Patient Location: I HR:73 bpm ECG Measurements Heart Rate 73 AXIS VA 199 P 47 QRSd 89 QRS -9 QT 349 T 33 QTc 385 Conclusion Sinus rhythm...normal P axis, V-rate 50- 99 Normal Electrocardiogram
[2022-03-22] MEDS: Multivitamin TAB 1 TAB PO (09:17)
[2022-03-22] MEDS: Omeprazole 20 MG CAPCR PO (09:17)
[2022-03-22] MEDS: buPROPion-XL 150 MG TABCR PO (09:17)
[2022-03-22] MEDS: Mirabegron 25 MG TABCR PO (09:17)
[2022-03-22] MEDS: Ascorbic Acid 500 MG TAB 1000 MG PO (09:17)
[2022-03-22] MEDS: DULoxetine 30 MG CAP 60 MG PO (09:17)
[2022-03-22] MEDS: Tamsulosin 0.4 MG CAPCR PO (09:17)
[2022-03-22] MEDS: Insulin Aspart 300 UNITS/3 ML PEN SC (09:23)
[2022-03-22] MEDS: Normal Saline Flush 10 ML SYR IVP (11:08)
--- NOTE | 2022-03-22 14:01 | DSE_ITS ---
Date of service: 03/22/22 Time of Service: 14:02 DS: Diagnosis Discharge Diagnosis (1) Chest pain: Status: Acute Discharge Plan Disposition Patient Disposition: HOME Condition: Stable Discharge Details Reason For Visit: Syncope w/Postoperative Hypotension,DANN,Chest Pain Admit Date/Time: 03/21/22 19:47 Admit Provider: Patric Khalil Attending Provider: Patric Khalil Primary Care Provider: Erin Mei [facility] Course Hospital Course: This is a 71-year-old female with history of ureterolithiasis, hydronephrosis, diabetes, hypertension, hyperlipidemia presents with report of several episodes of hypotension with subsequent chest pressure shortly after surgery.? Patient had cystoscopy with right ureteroscopy with retrograde pyelogram stent on the right the day of admission.? She received propofol for general anesthesia.? In the recovery phase she experienced some episodes of hypotension which resolved with fluids but then subsequent chest pain/pressure and feeling flushed as if she was going to pass out but did not have syncope.? She denies any shortness of breath.?Patient denies any previous cardiovascular disease or chest pain and has never had a heart attack though she has risk factors including diabetes, obesity, hyperlipidemia and hypertension.? Patient is a non-smoker and does not use any illicit drugs.? She does have gross hematuria with stenting of her right ureter with ureteral lithiasis the day of admission.? She did have a positive D- dimer in the ED but further testing cannot be done because of elevated creatinine and ultrasound capabilities were not available.? There is no family history of hypercoagulable states.? 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 She presently is less active.? As stated she is overweight.? In the ED she was resuscitated with IV fluids and had no further episodes of discomfort with negative cardiac evaluation including EKG and troponins.? She was referred for observation for IV hydration and trending troponins as well as considering CTA chest and venous Dopplers of lower extremities.? She could be at risk for PE but heparinization or anticoagulation at this time is contraindicated with her gross hematuria with stenting and her presentation being more likely hypotension with DANN and slight dehydration with near syncope.? Overnight she rested comfortably. vital signs stable, with no hypotention. she had no further episodes of chest pressure or pre-syncopy and remained on telemetry with no dysrhythmias or changes. She did have negative venous dopplers of lower extremities and it is decided that the cTA of the chest would be deferrred as she is asymptomatic with no further symptoms, no respiratory c/o or hypoxia or tachycardia and less likely to have a PE. She will be referred to her pcp for outpatient cardiac work up as she sees fit. she should follow up with urology as directed. no antibiotics indicated at discharge. discharge discussed with DR Patel.. Home Meds and New Rx's Prescriptions: Continued ascorbic acid (vitamin C) 250 mg tablet 1 g PO DAILY melatonin 5 mg capsule 5 mg PO HS PRN lisinopril 10 mg tablet 10 mg PO DAILY bupropion HCl 150 mg tablet extended release 24 hr 150 mg PO QAM glipizide 5 mg tablet 20 mg PO DAILY Myrbetriq 25 mg tablet extended release 24 hr 25 mg PO DAILY Qty: 28 0RF Rx Instructions: Samples tamsulosin [Flomax] 0.4 mg capsule 0.4 mg PO DAILY Qty: 7 0RF acetaminophen [Tylenol] 325 MG tablet 650 mg PO Q6H PRN pravastatin 40 MG tablet 40 mg PO DAILY omeprazole 20 MG capsule,delayed release(DR/EC) 20 mg PO DAILY multivitamin 1 EACH capsule 1 ea PO DAILY duloxetine [Cymbalta] 60 MG capsule,delayed release(DR/EC) 60 mg PO DAILY celecoxib [Celebrex] 200 mg capsule 400 mg PO DAILY tramadol 50 mg tablet 50 mg PO Q8H PRN (Reason: pain) Qty: 10 0RF Discharge Instructions Instructions: Chest Pain (DC) Additional Instructions: Your EKG and blood work did not show evidence of a heart attack during or after your procedure. you should follow up with your primary care provider regarding any further outpatient cardiology evaluation. should you develop any further chest pain or concerns, call 911 and present to the closest emergency department for evaluation. Stand Alone Forms: Nursing Discharge Form Referrals: Erin Mei [Primary Care Provider] - 04/03/22 12:00 pm Suleman Valera MD [ [facility] STAFF PHYSICIAN] - Activity:: Activity as Tolerated Equipment/Supplies:: No Equipment Needed Diet:: As Tolerated Discharge Orders Discharge Orders: Discharge Order (Routine); Ordered 03/22/22 Ordered By: Sharon De Dios Discharge Data Discharge Date/Time-TO BE ENTERED AT DEPARTURE: 03/22/22 15:36 DS: Summary Time Spent with Patient providing and/or coordinating discharge services: Less than 30 minutes Status at Discharge Functional status at discharge: independent ambulation Overall status at discharge: patient is progressing back to baseline Mental Status: mental status grossly normal Speech and Movement: speech and movement normal Mood: congruent mood Affect: normal affect Exam Const General: cooperative, comfortable and no acute distress HENMT Head: normal to inspection Eyes Pupils: PERRL Chest Chest: normal inspection of the chest Other: No reproducible chest wall pain Resp Effort & Inspection: normal respiratory effort Auscultation: clear to auscultation bilaterally Cardio Rate: regular rate Rhythm: regular rhythm Other: Distal pulses intact GI Inspection: normal to inspection Other: Nontender abdominal exam, no CVA tenderness Skin General skin exam: no rashes or lesions noted Neuro General: patient alert and patient oriented x3 Extrem Other: No calf swelling or tenderness, distal pulses intact Psych Mental Status: mental status grossly normal Speech and Movement: speech and movement normal Mood: congruent mood Affect: normal affect DS: Data Vitals/I&O Vitals and I&O: Vital Signs Temperature 37.2 C 03/22/22 12:09 Temperature Source Tympanic 03/22/22 12:09 Pulse 73 03/22/22 12:09 Pulse Rhythm Regular 03/22/22 12:44 Pulse 73 03/21/22 20:20 Respiratory Rate 16 03/22/22 12:09 Respiratory Effort Non-Labored 03/22/22 12:44 Respiratory Depth Normal 03/22/22 12:44 Respiratory Pattern Normal 03/22/22 12:44 Blood Pressure 133/71 03/22/22 12:09 Blood Pressure Mean 77 03/21/22 20:01 Pulse Oximetry 97 03/22/22 12:09 Oxygen Delivery Method Room Air 03/22/22 12:09 Oxygen Flow Rate 0 03/22/22 12:09 Pain Level 0 03/22/22 12:09 Comment 03/22/22 03:15 Intake & Output 03/21/22 03/22/22 03/22/22 23:59 11:59 23:59 Intake Total 1450 / 1690 240 / 1690 Output Total 100 / 100 1550 / 1925 375 / 1925 Balance -100 / -100 -100 / -235 -135 / -235 Weight 110.677 kg 111 kg Intake: IV 1050 / 1050 Oral 400 / 640 240 / 640 Output: Urine 100 / 100 1550 / 1925 375 / 1925 Other: Urine Color Dark Red Dark Saima Dark Saima [place] Urine Appearance Clear Clear Hematuria Urine Odor None Normal Normal Voiding Methods Toilet Toilet Data Completed and Pending Labs on day of discharge: Labs from last 24 hours 03/22/22 03/22/22 03/22/22 06:18 06:18 06:18 WBC 9.87 RBC 4.03 Hgb 11.2 Hct 34.8 L MCV 86 MCH 27.8 MCHC 32.2 RDW 13.0 Plt Count 310 MPV 9.2 Immature Gran % 0.3 Neutrophils % 71.7 Lymphocytes % 15.9 Monocytes % 5.7 Eosinophils % 5.9 Basophils % 0.5 Nucleated RBC % 0.0 Absolute Neutrophils 7.08 H Absolute Lymphocytes 1.57 Absolute Monocytes 0.56 Absolute Eosinophils 0.58 Absolute Basophils 0.05 PT INR D-Dimer Sodium 140 Potassium 4.7 Chloride 106 Carbon Dioxide 25.6 Anion Gap 8.4 BUN 32 H Creatinine 1.8 H Estimated GFR/1.73 m2 27.66 Glucose 157 H Calcium 8.9 Magnesium Total Bilirubin 0.3 AST 58 H ALT 75 H Alkaline Phosphatase 222 H Troponin I < 50 Total Protein 6.7 Albumin 2.8 L TSH COVID-19 Source SARS-CoV-2 (PCR) 03/22/22 03/21/22 03/21/22 01:00 20:40 20:40 WBC RBC Hgb Hct MCV MCH MCHC RDW Plt Count MPV Immature Gran % Neutrophils % Lymphocytes % Monocytes % Eosinophils % Basophils % Nucleated RBC % Absolute Neutrophils Absolute Lymphocytes Absolute Monocytes Absolute Eosinophils Absolute Basophils PT INR D-Dimer Sodium Potassium Chloride Carbon Dioxide Anion Gap BUN Creatinine Estimated GFR/1.73 m2 Glucose Calcium Magnesium Total Bilirubin AST ALT Alkaline Phosphatase Troponin I < 50 Total Protein Albumin TSH 1.85 COVID-19 Source Nasal/Nares SARS-CoV-2 (PCR) Negative 03/21/22 03/21/22 03/21/22 20:40 18:36 16:30 WBC RBC Hgb Hct MCV MCH MCHC RDW Plt Count MPV Immature Gran % Neutrophils % Lymphocytes % Monocytes % Eosinophils % Basophils % Nucleated RBC % Absolute Neutrophils Absolute Lymphocytes Absolute Monocytes Absolute Eosinophils Absolute Basophils PT 9.9 INR 1.0 D-Dimer 2251 H Sodium Potassium Chloride Carbon Dioxide Anion Gap BUN Creatinine Estimated GFR/1.73 m2 Glucose Calcium Magnesium Total Bilirubin AST ALT Alkaline Phosphatase Troponin I < 50 Total Protein Albumin TSH COVID-19 Source SARS-CoV-2 (PCR) 03/21/22 03/21/22 16:30 16:30 WBC 13.45 H RBC 4.20 Hgb 11.7 Hct 36.8 MCV 88 MCH 27.9 MCHC 31.8 L RDW 13.2 Plt Count 316 MPV 9.2 Immature Gran % 0.4 Neutrophils % 76.6 Lymphocytes % 14.6 Monocytes % 4.2 Eosinophils % 3.9 Basophils % 0.3 Nucleated RBC % 0.0 Absolute Neutrophils 10.30 H Absolute Lymphocytes 1.96 Absolute Monocytes 0.56 Absolute Eosinophils 0.52 Absolute Basophils 0.04 PT INR D-Dimer Sodium 139 Potassium 4.8 Chloride 104 Carbon Dioxide 26.3 Anion Gap 8.7 BUN 35 H Creatinine 2.0 H Estimated GFR/1.73 m2 24.49 Glucose 158 H Calcium 9.2 Magnesium 1.9 Total Bilirubin 0.3 AST 76 H ALT 54 Alkaline Phosphatase 203 H Troponin I < 50 Total Protein 7.1 Albumin 2.9 L TSH COVID-19 Source SARS-CoV-2 (PCR) PFSH All Active Problems (Updated 03/22/22 @ 06:34 by Patric Khalil) DANN (acute kidney injury) (Acute) HTN (hypertension) (Chronic) Chest pain (Acute) Ureterolithiasis (Chronic) Post surgical complication (Acute) Hydronephrosis, right (Chronic) Bladder prolapse (Acute) Stress incontinence (female) (male) (Acute) Obesity (Chronic) Mixed stress and urge urinary incontinence (Acute) Medical History Depression Diabetes mellitus type 2, diet-controlled Family hx of colon cancer Mother, 85 Generalized osteoarthritis of multiple sites Spine, feet, shoulders GERD (gastroesophageal reflux disease) Glucose intolerance (impaired glucose tolerance) History of cervical dysplasia Hyperlipidemia Obstructive sleep apnea on CPAP Presence of pessary Right shoulder, extensive tendonitis Supraspinatus tear, conservative management Spinal stenosis Syncope Urinary incontinence Surgical History Cholecystectomy (10/13/73) Colonoscopy - MAC (07/01/16) History of cataract extraction Family History Mother Colon cancer Diabetes Osteoporosis CAD (coronary artery disease) Father Diabetes PUD (peptic ulcer disease) Brother [place] (myocardial infarction) Social History Smoking/Tobacco Use Status: Never Smoking risk assessment performed?: Yes Alcohol Intake: current Alcohol Intake frequency: holidays/special occasions only Drug use: Never Substance use type: does not use Do you feel safe at home: Yes Do you feel safe in your relationship?: Yes History History 2 Para 2 Hx # Term Pregnancies 2 Multiple births Hx # Pregnancies 0 Ectopic pregnancies AB induced 0 Hx Number of Living Children 2 AB spontaneous 0
== END 2022-03-22 15:36 | disposition home or self-care (01) ==
LOC: ER 20:42 → MS 20:47
PROVIDERS: Admitting Provider Family Medicine; Emergency Provider Physician Assistant; PCP Family Medicine; Visit Provider Family Medicine
DX: T81.89XA Other complications of procedures, not elsewhere classified, initial encounter (principal); R07.89 Other chest pain; I95.81 Postprocedural hypotension; R79.1 Abnormal coagulation profile; N17.9 Acute kidney failure, unspecified; E86.0 Dehydration; N13.2 Hydronephrosis with renal and ureteral calculous obstruction; N99.820 Postprocedural hemorrhage of a genitourinary system organ or structure following a genitourinary system procedure; R31.0 Gross hematuria; E78.5 Hyperlipidemia, unspecified; I10 Essential (primary) hypertension; E66.9 Obesity, unspecified; E11.9 Type 2 diabetes mellitus without complications; Z68.38 Body mass index [BMI] 38.0-38.9, adult; N39.46 Mixed incontinence; F32.A Depression, unspecified; Z80.0 Family history of malignant neoplasm of digestive organs; K21.9 Gastro-esophageal reflux disease without esophagitis; G47.33 Obstructive sleep apnea (adult) (pediatric); Z79.84 Long term (current) use of oral hypoglycemic drugs
CPT/HCPCS: 36415; 36416; 52356; 80053; 82962; 87635; 93005; 96361; 96365; 96366; 96372; 99219; 99285; 71045; 74420; 83735; 84443; 84484; 85025; 85379; 85610; 93010; 93970; 99217; 99220; G0378; J0690; J0696; J1885; J3010; Q9967

== ENCOUNTER 2022-05-03 10:27 | Outpatient (REF) | payer MEDICARE, BC, SELFPAY ==
[2022-05-03 11:28] LABS: Source Nasal/Nares
[2022-05-03 15:07] LABS: COVID-19 PCR Negative (Negative)
== END 2022-05-03 10:28 | disposition home or self-care (01) ==
LOC: LBN 10:27
PROVIDERS: PCP Family Medicine; Visit Provider Urology
DX: Z20.822 Contact with and (suspected) exposure to COVID-19 (principal); Z01.818 Encounter for other preprocedural examination
CPT/HCPCS: 87635

== ENCOUNTER 2022-05-06 06:04 | Day surgery (SDC) | payer MEDICARE, BC, SELFPAY ==
[2022-05-06] VITALS (9 sets, daily range): BP systolic 99–134; BP diastolic 44–71; PULSE 58–69; RESP 14–20; TEMP 36–36.5; O2SAT 96–98; BMI 38.2
--- NOTE | 2022-05-06 06:58 | W.PM.HP.N ---
Date of service: 05/06/22 Time of Service: 06:58 Assessment and Plan Assessment and plan (1) Ureterolithiasis: Status: Chronic Assessment and plan: For cystoscopy with removal of right ureteral stent, right retrograde pyelogram, with repeat right ureteroscopy with extraction of any residual stone fragments. If any of the fragments are large, we may use the holmium laser to break the stone further. If she is made stone free during today's procedure, we will inject a bulking agent at the bladder neck for her urinary incontinence (the ISD component) History of Present Illness History of Present Illness Chief Complaint: Right ureteral stone Narrative: Is a 71-year-old woman who was initially identified as having a nonobstructing stone in the right kidney. She then developed renal colic and her stone migrated to the right distal ureter. We did cystoscopy, ureteroscopy and holmium laser of a right sided stone. Visibility became compromised, so we placed a ureteral stent and made plans for a return to the operating room for repeat ureteroscopy and extraction of any residual stone fragments. She has a history of mixed urinary incontinence and has been interested in an injection of a bulking agent at the bladder neck. Once she is stone free, we will plan to inject Coaptite at the bladder neck at the completion of the procedure. Review of Systems Narrative: No fevers or chills No vision change or dysphasia Hc Diabetes. No thyroid dysfunction Sleep apnea - on CPAP. No hemoptysis Following previous procedure, she had chest pain, but had a negative cardiac workup. No chest pain or palpitations since that procedure Hx GERD. No hepatitis, ulcers, jaundice, diarrhea or constipation No seizures, strokes or peripheral neuropathy No bleeding disorders or anemia No gout PFSH All Active Problems Bladder prolapse (Acute) Stress incontinence (female) (male) (Acute) Obesity (Chronic) Mixed stress and urge urinary incontinence (Acute) Hydronephrosis, right (Chronic) Chest pain (Acute) Ureterolithiasis (Chronic) Post surgical complication (Acute) HTN (hypertension) (Chronic) DANN (acute kidney injury) (Acute) Medical History Depression Diabetes mellitus type 2, diet-controlled Family hx of colon cancer Mother, 85 Generalized osteoarthritis of multiple sites Spine, feet, shoulders GERD (gastroesophageal reflux disease) Glucose intolerance (impaired glucose tolerance) History of cervical dysplasia Hyperlipidemia Obstructive sleep apnea on CPAP Presence of pessary Right shoulder, extensive tendonitis Supraspinatus tear, conservative management Spinal stenosis Syncope Urinary incontinence Surgical History (Updated 05/06/22 @ 06:33 by Shameka Grier RN) Cholecystectomy (10/13/73) Colonoscopy - MAC (07/01/16) History of cataract extraction S/P ureteral stent placement Family History Mother Colon cancer Diabetes Osteoporosis CAD (coronary artery disease) Father Diabetes PUD (peptic ulcer disease) Brother [place] (myocardial infarction) Social History Smoking/Tobacco Use Status: Never Smoking risk assessment performed?: Yes Alcohol Intake: current Alcohol Intake frequency: holidays/special occasions only Drug use: Never Substance use type: does not use Do you feel safe at home: Yes Do you feel safe in your relationship?: Yes History History 2 Para 2 Hx # Term Pregnancies 2 Multiple births Hx # Pregnancies 0 Ectopic pregnancies AB induced 0 Hx Number of Living Children 2 AB spontaneous 0 Meds Allergies and Home Medications Allergies Allergy/AdvReac Type Severity Reaction Status Date / Time gabapentin AdvReac increased Verified 05/06/22 06:33 falls at higher doses metformin AdvReac gas, Verified 05/06/22 06:33 bloating, diarrhea Home Medications Medication Instructions Recorded Confirmed Type Cymbalta 60 mg capsule,delayed 60 mg PO DAILY 06/04/16 05/06/22 History release (duloxetine) Tylenol 325 mg tablet 650 mg PO Q6H PRN 06/04/16 05/06/22 History (acetaminophen) multivitamin 1 ea PO DAILY 06/04/16 05/06/22 History omeprazole 20 mg capsule,delayed 20 mg PO DAILY 06/04/16 05/06/22 History release pravastatin 40 mg tablet 40 mg PO DAILY 06/04/16 05/06/22 History bupropion HCl 150 mg 24 hr tablet, 150 mg PO QAM 06/26/21 05/06/22 History extended release lisinopril 10 mg tablet 10 mg PO DAILY 06/26/21 05/06/22 History Celebrex 200 mg capsule (celecoxib) 400 mg PO DAILY 08/28/21 05/06/22 History ascorbic acid (vitamin C) 250 mg 1 g PO DAILY 08/28/21 03/21/22 History tablet melatonin 5 mg capsule 5 mg PO HS PRN 08/28/21 05/06/22 History glipizide 5 mg tablet 20 mg PO DAILY 09/17/21 05/06/22 History mirabegron 25 mg tablet,extended 25 mg PO DAILY #28 tabs 01/01/22 05/06/22 Rx release 24 hr (Myrbetriq) tamsulosin 0.4 mg capsule (Flomax) 0.4 mg PO DAILY #7 caps 03/13/22 03/21/22 Rx Exam Const General: cooperative Nutritional Appearance: obese Neck Neck: supple Resp Effort & Inspection: normal respiratory effort Auscultation: clear to auscultation bilaterally Cardio Rate: regular rate Rhythm: regular rhythm GI Palpation: soft and no masses Neuro General: patient alert, patient awake and patient oriented x3 Results Last Vital Signs Temp 36.5 C 05/06/22 06:20 Pulse 65 05/06/22 06:20 Resp 20 05/06/22 06:20 Pulse Ox 97 05/06/22 06:20
--- NOTE | 2022-05-06 07:21 | W.ANESPRE ---
General Info Date of Service Date Performed: 05/06/22 Height: 5 ft 7 in Weight: 110.6 kg Body Mass Index (BMI): 38.2 Surgical Procedure: Operation Date: 05/06/22 09:10 Proposed Procedure Side Surgeon p Cystoscopy/Possible Laser/Retrograde/Ureteroscopy w/Stone Fragments/Removal of Ureteral Stent Right Suleman Valera MD Meds Allergies and Home Medications Allergies Allergy/AdvReac Type Severity Reaction Status Date / Time gabapentin AdvReac increased Verified 05/06/22 06:33 falls at higher doses metformin AdvReac gas, Verified 05/06/22 06:33 bloating, diarrhea Home Medication Medication Instructions Recorded Cymbalta 60 mg capsule,delayed 60 mg PO DAILY 06/04/16 release (duloxetine) Tylenol 325 mg tablet 650 mg PO Q6H PRN 06/04/16 (acetaminophen) multivitamin 1 ea PO DAILY 06/04/16 omeprazole 20 mg capsule,delayed 20 mg PO DAILY 06/04/16 release pravastatin 40 mg tablet 40 mg PO DAILY 06/04/16 bupropion HCl 150 mg 24 hr tablet, 150 mg PO QAM 06/26/21 extended release lisinopril 10 mg tablet 10 mg PO DAILY 06/26/21 Celebrex 200 mg capsule (celecoxib) 400 mg PO DAILY 08/28/21 ascorbic acid (vitamin C) 250 mg 1 g PO DAILY 08/28/21 tablet melatonin 5 mg capsule 5 mg PO HS PRN 08/28/21 glipizide 5 mg tablet 20 mg PO DAILY 09/17/21 mirabegron 25 mg tablet,extended 25 mg PO DAILY #28 tabs 01/01/22 release 24 hr (Myrbetriq) tamsulosin 0.4 mg capsule (Flomax) 0.4 mg PO DAILY #7 caps 03/13/22 Current Visit Medications: Current Medications Generic Name Dose Route Start Last Admin Trade Name Freq PRN Reason Stop Dose Admin Ringer's Solution 1,000 mls @ 80 mls/hr 05/06/22 06:00 IV 06/02/22 23:59 INFUSION NOAM Cefazolin Sodium/Dextrose 2 gm in 50 mls @ 100 mls/hr 05/06/22 06:00 Ancef Duplex IVPB 06/02/22 23:59 PREOP NOAM IV Miscellaneous Supplies 1 each 05/06/22 06:00 Iv Access IV 06/02/22 23:59 DIRECTED NOAM Sodium Chloride 0 ml 05/06/22 06:00 Normal Saline Flush 10 Ml Syr IV 06/02/22 23:59 PRN PRN Sodium Chloride 0 ml 05/06/22 06:00 Normal Saline 10 Ml Vial IJ 06/02/22 23:59 DIRECTED PRN Sterile Water 0 ml 05/06/22 06:00 Water,Injection,Sterile 10 Ml Vial IJ 06/02/22 23:59 DIRECTED PRN PFSH Active Problems Active Problems: Problem Status Onset Code Bladder prolapse Stress incontinence (female) (male) N39.3 Obesity E66.9 Mixed stress and urge urinary incontinence N39.46 Hydronephrosis, right N13.30 Chest pain R07.9 Ureterolithiasis N20.1 Post surgical complication T81.9XXA HTN (hypertension) I10 DANN (acute kidney injury) N17.9 Medical History Medical History Depression Diabetes mellitus type 2, diet-controlled Family hx of colon cancer Mother, 85 Generalized osteoarthritis of multiple sites Spine, feet, shoulders GERD (gastroesophageal reflux disease) Glucose intolerance (impaired glucose tolerance) History of cervical dysplasia Hyperlipidemia Obstructive sleep apnea on CPAP Presence of pessary Right shoulder, extensive tendonitis Supraspinatus tear, conservative management Spinal stenosis Syncope Urinary incontinence Medical History Comments:: Last surgical visit pt. was admitted to ER for chest pain. has had negative stress test 03/22/22 Surgical History Surgical History (Updated 05/06/22 @ 06:33 by Shameka Grier RN) Cholecystectomy (10/13/73) Colonoscopy - MAC (07/01/16) History of cataract extraction S/P ureteral stent placement Tobacco Smoking/Tobacco Use Status: Never Alcohol Alcohol Intake: current Alcohol intake frequency: holidays/special occasions only Substance Use Substance use: Never Substance use type: does not use Prental History History 2 Para 2 Hx # Term Pregnancies 2 Multiple births Hx # Pregnancies 0 Ectopic pregnancies AB induced 0 Hx Number of Living Children 2 AB spontaneous 0 Vital Signs and Lab Results Vital Signs Most Recent Vital Signs in EMR: Most Recent Vital Signs Temp Pulse Resp BP Pulse Ox 36.5 C 65 20 125/66 97 05/06/22 06:20 05/06/22 06:20 05/06/22 06:20 05/06/22 06:20 05/06/22 06:20 Point of Care Results Point of Care Results: Finger Stick Blood Glucose 158 05/06/22 06:39 Lab Results Blood Type / Crossmatch: No Data to Display Complete Blood Count: No Data to Display Complete Metabolic Panel: No Data to Display Liver Function Panel: No Data to Display Coagulation Panel: No Data to Display Cardiac Panel: No Data to Display Arterial Blood Gas: No Data to Display Venous Blood Gas: No Data to Display Pancreas Panel: No Data to Display Thyroid Panel: No Data to Display Infectious Disease: Coronavirus (COVID-19)(PCR) Negative (Negative) 05/03/22 08:10 Coronavirus 2019 Source Nasal/Nares 05/03/22 08:10 Blood Cultures: No Data to Display Toxicology Panel: No Data to Display Imaging and Studies Imaging and Studies Study information below may be from another EMR and interpreted by another provider. Please see original notes in EMR for more complete details. EKG Summary: Conclusion Sinus rhythm...normal P axis, V-rate 50- 99 Normal Electrocardiogram 03/22/22 Stress Test Summary: 04/24/22 at [facility] No ischemia nor infarct. Preserved LV function. Anesthesia Assessment and Plan Anesthesia History Personal History: No History of Anesthesia Complications and Awareness Under Anesthesia Family History: No Family History of Anesthesia Complications Exercise Tolerance Exercise Tolerance: Metabolic Equivalents<4 Pertinent Negatives Pertinent Negatives: No Symptoms of GERD, No Major Pulmonary Symptoms or Complaints, No History of CVA/TIA and Other (See note below. ) Cardiac & Pulmonary Exam Cardiac Exam: Normal S1/S2 Heart Sounds Pulmonary Exam: Clear Bilateral Breath Sounds Implantable Cardiac Device Does patient have a Pacemaker or an ICD?: No Airway Exam Known Difficult Airway: No Mallampati Class: 1 Mouth Opening: Normal (> 3cm) Thyromental Distance: Greater than 3 cm Neck Range of Motion: Full ROM Neck Circumference: Normal Teeth Condition: Normal Dentition ASA Classification ASA Score: ASA 3 Emergency Case?: No NPO Status NPO Status: NPO Clears >2 hours, Solids >8 hours Anesthesia Plan Resuscitation Status: Full Code Anesthesia Technique: General Anesthesia Airway Planned: LMA Monitors Used: Standard Monitors Preoperative Comments:: Chest pain and Positive D-dimer with hypotension postoperatively on 03/21/22. ER visit post op with negative troponins x 2 and negative EKG, observed overnight. Extremity venous study negative bilaterally for DVT on 03/22/22. Stress test as outpatient also negative. No further episodes of chest discomfort per patient.
[2022-05-06] MEDS: Lactated Ringers 1,000 ML 80 ML IV (07:24)
--- NOTE | 2022-05-06 08:30 | DI.RAD_ITS ---
Exam(s) XR RETROGRADE IN OR EXAM: XR RETROGRADE IN OR CLINICAL HISTORY: retrograde pyleogram, stone removal. TECHNIQUE: 2D digital imaging was performed. COMPARISON: No exams were available for comparison FINDINGS: Prosperous provided during retrograde urologic procedure. Please see procedure report for details. Total cumulative dose= 7.03mGy IMPRESSION: DATA REPOSITORY: RADIATION DOSE DELIVERED:
[2022-05-06] MEDS: ceFAZolin 2 GM/50 ML BAG IVPB (09:03)
[2022-05-06] MEDS: Lidocaine 2% Jelly 6 ML SYR (09:15)
--- NOTE | 2022-05-06 09:46 | W.PM.DSUDISC ---
Discharge Plan Disposition Patient Disposition: HOME Condition: Good Discharge Details Reason For Visit: Ureteral stone Attending Provider: Suleman Valera Primary Care Provider: Erin Mei Home Meds and New Rx's Prescriptions: No Action melatonin 5 mg capsule 5 mg PO HS PRN lisinopril 10 mg tablet 10 mg PO DAILY bupropion HCl 150 mg tablet extended release 24 hr 150 mg PO QAM glipizide 5 mg tablet 20 mg PO DAILY Myrbetriq 25 mg tablet extended release 24 hr 25 mg PO DAILY Qty: 28 0RF Rx Instructions: Samples acetaminophen [Tylenol] 325 MG tablet 650 mg PO Q6H PRN pravastatin 40 MG tablet 40 mg PO DAILY omeprazole 20 MG capsule,delayed release(DR/EC) 20 mg PO DAILY multivitamin 1 EACH capsule 1 ea PO DAILY duloxetine [Cymbalta] 60 MG capsule,delayed release(DR/EC) 60 mg PO DAILY celecoxib [Celebrex] 200 mg capsule 400 mg PO DAILY Discharge Instructions Additional Instructions: no need to strain urine ask pt to call in @ 1 week with update regarding incontinence followup appt 6 to 8 weeks with renal ultrasound may use ibuprofen and tylenol as needed for pain Stand Alone Forms: Post-op Topical Cataract, Danica Jorgensen (DSU) Activity:: Activity as Tolerated Shower/Bathe:: 24 hours Diet:: As Tolerated Discharge Orders Discharge Orders: Discharge Order (Routine); Ordered 05/06/22 Ordered By: Suleman Valera DS: Diagnosis Discharge Diagnosis (1) Ureterolithiasis: Status: Chronic
--- NOTE | 2022-05-06 09:59 | W.PM.OP ---
Date of service: 05/06/22 Time of Service: 09:59 Operative Note Operative Note DATE OF PROCEDURE: 05/06/22 PRE-OP DIAGNOSIS: 1. Right ureteral stone 2. Urinary Incontinence due to ISD PROCEDURE: Cystoscopy, remove right ureteral stent, right semirigid and flexible ureteroscopy's with extraction of stone fragments, injection of Coaptite at bladder neck SURGEON: Suleman Valera ANESTHESIA TYPE: General:No Airway Refer to Anesthesia Record ESTIMATED BLOOD LOSS: 5 PATHOLOGY: other (stone fragments for chemical analysis) COMPLICATIONS: None Patient was transported to: PACU Patient's condition: stable Implants: 1 vial Coaptite Indications: This is a 71-year-old woman who has a history of mixed urinary incontinence. She is on Myrbetriq for the urgency portion of her incontinence. She is interested in an injection of a bulking agent at the bladder neck for the intrinsic sphincter deficiency portion of her incontinence. She had a nonobstructing right kidney stone that had been monitored. The stone migrated into the ureter and caused renal colic. She underwent ureteroscopy with holmium laser lithotripsy of the stone. Visibility became compromised, so we planned a return to the operating room for stent removal and repeat ureteroscopy with extraction of stone fragments. Findings: Multiple small stone fragments in right ureter Additional fragment in the right collecting system Procedure Description: The patient was brought to the operating room on 05/06/2022. She was given preoperative antibiotics. After successful induction of general anesthesia without intubation, she was placed in the dorsal lithotomy position. Her genitalia was prepped and draped. 2% Xylocaine jelly was instilled into the urethra to act as a local anesthetic. A 20 [place] urethrotome sheath was passed through the urethra into the bladder. The bladder was inspected with a 30 degree lens. A stent could be seen protruding from the right ureteral orifice. The distal end of the stent had become encrusted with stone. The stent was grasped and brought to the level of the urethral meatus. A Glidewire was advanced through the lumen of the stent. The stent was removed leaving the wire in place. I then passed a semirigid ureteroscope through the urethra and introduced the scope into the right distal ureter. The scope was advanced up to the pelvic brim. Multiple small stone fragments were identified. A larger stone fragment was grasped in a [place] stone basket and removed. The stone fragment was sent to the laboratory for chemical analysis. I then passed the dual-lumen catheter over the wire. I positioned a second wire and chose one of the wires as a working wire and the second 1 as a safety wire. A ureteral access sheath was advanced over the working wire and the wire was removed. Flexible ureteroscopy was performed on the proximal ureter and collecting systems. Again multiple small stone fragments were identified, but there was a larger stone fragments seen in the renal pelvis. This fragment was grasped in a 0 tip stone basket and removed in its entirety. With no additional stones being identified, we removed the ureteroscope and safety wire. We elected not to replace the ureteral stent. We then passed a 20 [place] urethrotome sheath through the urethra into the bladder. The bladder neck was inspected with a 30 degree lens. Using a transurethral injection system, we injected 1 vial of coapt tight submucosally. There did appear to be good coaptation of the bladder neck mucosa when the bladder neck was viewed cystoscopically. The scope was then removed. The bladder was drained with a 16 [place] straight catheter. The patient tolerated the procedure well with no complications. She was taken to the recovery room.
[2022-05-06] MEDS: fentaNYL 100 MCG/2 ML VIAL IVP (10:21)
--- NOTE | 2022-05-06 11:13 | W.ANESPOSTOP ---
Postoperative Evaluation Date, Time and Location Date Performed: 05/06/22 Time Performed: 10:28 Patient Location: PACU Vital Signs Most Recent Imported Vital Signs: Most Recent Vital Signs Temp Pulse Resp BP Pulse Ox 36.4 C L 58 L 17 111/59 L 96 05/06/22 09:55 05/06/22 10:35 05/06/22 10:35 05/06/22 10:35 05/06/22 10:35 Pain Score Most Recent Pain Score: Most Recent Pain Score Pain Level 5 05/06/22 10:35 Assessment Mental Status: Awake (Alert & Oriented to Patient Baseline) Airway and Respiratory Function: Patent airway with normal (patient baseline) respiratory exam Cardiovascular Function: Hemodynamically Stable Hydration Status: Adequately Hydrated Nausea & Vomiting: No Nausea or Vomiting Pain: Pain is tolerable per patient Peripheral Nerve Block: Patient did not receive a nerve block
[2022-05-06] MEDS: Phenazopyridine 200 MG TAB PO (11:25)
[2022-05-14 00:14] LABS: Source: Right Ureter
== END 2022-05-06 11:58 | disposition home or self-care (01) ==
PROVIDERS: PCP Family Medicine; Visit Provider Urology
PROC: (CPT 52352; principal; 2022-05-06 09:00)
DX: N20.1 Calculus of ureter (principal); N36.42 Intrinsic sphincter deficiency (ISD); N39.3 Stress incontinence (female) (male); E11.9 Type 2 diabetes mellitus without complications; I10 Essential (primary) hypertension; K21.9 Gastro-esophageal reflux disease without esophagitis
CPT/HCPCS: 52352; 51715; 74420; 82365; J0690; J2405; J2704; J3010; L8606

== ENCOUNTER → 2022-06-13 03:00 | Outpatient (CLI) | payer MEDICARE, BC, SELFPAY ==
--- NOTE | 2022-06-13 07:15 | DI.US_ITS ---
Exam(s) US RENAL EXAM: US RENAL CLINICAL HISTORY: r/o hydronephrosis after ureteroscopy, N20.1, URETEROLITHIASIS TECHNIQUE: Ultrasound of both kidneys performed using standard protocol. COMPARISON: CT CT ABD AND PELVIS WITHOUT CONT from 02/15/2022 US US EXTREMITY VENOUS BI from 03/22/2022 FINDINGS: RIGHT KIDNEY: Measures 10 cm in length. No cysts evident. Normal cortical thickness and corticomedullary differenti ation .No solid masses No intrarenal calculi nor hydronephrosis. LEFT KIDNEY: Measures 10 cm in length. There are 2 benign cysts in left kidney noted, 1 measuring 2.5 x 3 cm and the other measuring 2.2 x 2.3 cm. Normal cortical thickness and corticomedullary differentiaion. No solids masses. No intrarenal calculi nor hydonephrosis. URINARY BLADDER: Prevoid volume is 245 cc Postvoid volume is 4 cc No evidence of bladder mass nor diverticuli. Ureterovesical jets: Both identified and appear symmetrical IMPRESSION: 1. No significant new focal ultrasound findings in the kidneys. No hydronephrosis 2. Two small benign cysts in left kidney with measurements as above. These were evident on the CT s can of February 15, 2022 DATA REPOSITORY:
== END ==
PROVIDERS: PCP Family Medicine; Visit Provider Urology
DX: N20.1 Calculus of ureter (principal); N28.89 Other specified disorders of kidney and ureter
CPT/HCPCS: 76770

== ENCOUNTER → 2022-06-20 14:04 | Outpatient (BNVA) | payer MEDICARE, BC, SELFPAY | PROVIDERS: PCP Family Medicine; Referring Provider Family Medicine; Visit Provider Nurse Practitioner Gerontology | DX: N39.46 Mixed incontinence (principal); N17.9 Acute kidney failure, unspecified; N13.30 Unspecified hydronephrosis | CPT/HCPCS: 36415; 81003; 99214 ==

== ENCOUNTER 2022-06-20 17:22 | Outpatient (REF) | payer MEDICARE, BC, SELFPAY ==
[2022-06-20 22:38] LABS: BUN 30 mg/dL (7-18); CREATININE 1.4 mg/dL (0.55-1.02); Estimated GFR 39.97 (mL/min/1.73m2)
== END 2022-06-20 17:23 | disposition home or self-care (01) ==
LOC: LBN 17:22
PROVIDERS: PCP Family Medicine; Visit Provider Nurse Practitioner Gerontology
DX: N17.9 Acute kidney failure, unspecified (principal); N13.30 Unspecified hydronephrosis
CPT/HCPCS: 84520; 82565

== ENCOUNTER → 2022-10-17 10:23 | Outpatient (BNVA) | payer MEDICARE, BC, SELFPAY | PROVIDERS: PCP Family Medicine; Referring Provider Family Medicine; Visit Provider Nurse Practitioner Gerontology | DX: N39.3 Stress incontinence (female) (male) (principal) | CPT/HCPCS: 99441 ==

== ENCOUNTER 2022-11-07 05:51 | Day surgery (SDC) | payer MEDICARE, BC, SELFPAY ==
[2022-11-07 06:15] VITALS: BP 136/73; PULSE 73; RESP 18; TEMP 37.1; O2SAT 96
[2022-11-07] MEDS: Sulfameth/Trimeth DS TAB 1 TAB PO (06:44)
[2022-11-07] MEDS: Lactated Ringers 1,000 ML 80 ML IV (06:45)
--- NOTE | 2022-11-07 06:57 | W.PM.HP.N ---
Date of service: 11/07/22 Time of Service: 06:57 Assessment and Plan Assessment and plan (1) Mixed stress and urge urinary incontinence: Status: Acute Assessment and plan: We will repeat her injection of Coaptite for the ISD component of her incontinence History of Present Illness History of Present Illness Chief Complaint: Incontinence due to ISD Narrative: This is a is a 72-year-old woman who has a history of mixed urinary incontinence. She is on Myrbetriq for the urgency component of her incontinence. Previously, she was treated with an injection of a bulking agent at the bladder neck for the ISD component of her incontinence. She initially did quite well, and was actually able to stop wearing thicker pads altogether. She had good results for about 4 months. Then, about 6 to 8 weeks ago, the incontinence began worsening. She presents for repeat injection. She had no adverse reactions with her first injection. She did not develop urinary retention. Review of Systems Narrative: No fevers or chills No vision change or dysphasia No diabetes or thyroid No shortness of breath, cough or hemoptysis No chest pain or palpitations No nausea, vomiting, hepatitis, ulcers, jaundice No seizures, strokes or peripheral neuropathy No bleeding disorders or anemia No gout PFSH All Active Problems Bladder prolapse (Acute) Stress incontinence (female) (male) (Acute) Obesity (Chronic) Mixed stress and urge urinary incontinence (Acute) Hydronephrosis, right (Chronic) Chest pain (Acute) Ureterolithiasis (Chronic) Post surgical complication (Acute) HTN (hypertension) (Chronic) DANN (acute kidney injury) (Acute) Medical History Depression Diabetes mellitus type 2, diet-controlled Family hx of colon cancer Mother, 85 Generalized osteoarthritis of multiple sites Spine, feet, shoulders GERD (gastroesophageal reflux disease) Glucose intolerance (impaired glucose tolerance) History of cervical dysplasia Hyperlipidemia Obstructive sleep apnea on CPAP Presence of pessary 80mm incontinence dish Right shoulder, extensive tendonitis Supraspinatus tear, conservative management Spinal stenosis Syncope Urinary incontinence Surgical History Cholecystectomy (10/13/73) Colonoscopy - MAC (07/01/16) History of cataract extraction History of right shoulder replacement S/P ureteral stent placement Family History Mother Colon cancer Diabetes Osteoporosis CAD (coronary artery disease) Father Diabetes PUD (peptic ulcer disease) Brother HI (myocardial infarction) Social History Smoking/Tobacco Use Status: Never Smoking risk assessment performed?: Yes Alcohol Intake: current Alcohol Intake frequency: holidays/special occasions only Drug use: Never Substance use type: does not use Do you feel safe at home: Yes Do you feel safe in your relationship?: Yes History History 2 Para 2 Hx # Term Pregnancies 2 Multiple births Hx # Pregnancies 0 Ectopic pregnancies AB induced 0 Hx Number of Living Children 2 AB spontaneous 0 Meds Allergies and Home Medications Allergies Allergy/AdvReac Type Severity Reaction Status Date / Time gabapentin AdvReac increased Verified 11/07/22 06:11 falls at higher doses metformin AdvReac gas, Verified 11/07/22 06:11 bloating, diarrhea Home Medications Medication Instructions Recorded Confirmed Type Cymbalta 60 mg capsule,delayed 60 mg PO DAILY 06/04/16 11/07/22 History release (duloxetine) Tylenol 325 mg tablet 650 mg PO Q6H PRN 06/04/16 11/07/22 History (acetaminophen) multivitamin 1 ea PO DAILY 06/04/16 11/06/22 History omeprazole 20 mg capsule,delayed 20 mg PO DAILY 06/04/16 11/07/22 History release pravastatin 40 mg tablet 40 mg PO DAILY 06/04/16 11/07/22 History bupropion HCl 150 mg 24 hr tablet, 150 mg PO QAM 06/26/21 11/07/22 History extended release lisinopril 10 mg tablet 10 mg PO DAILY 06/26/21 11/07/22 History Celebrex 200 mg capsule (celecoxib) 400 mg PO DAILY 08/28/21 11/07/22 History melatonin 5 mg capsule 5 mg PO HS PRN 08/28/21 11/07/22 History glipizide 5 mg tablet 20 mg PO DAILY 09/17/21 11/07/22 History mirabegron 25 mg tablet,extended 25 mg PO DAILY #28 tabs 01/01/22 11/07/22 Rx release 24 hr (Myrbetriq) estradiol 2 mg (7.5 mcg/24 hour) 1 vag ring vaginal [id number] #1 ea 10/09/22 11/06/22 Rx vaginal ring (Estring) Exam Const General: cooperative and comfortable Nutritional Appearance: obese Neck Neck: supple Resp Effort & Inspection: normal respiratory effort Auscultation: clear to auscultation bilaterally Cardio Rate: regular rate Rhythm: regular rhythm GI Palpation: soft and no masses Neuro General: patient alert, patient awake and patient oriented x3 Results Last Vital Signs Temp 37.1 C 11/07/22 06:15 Pulse 73 11/07/22 06:15 Resp 18 11/07/22 06:15 BP 136/73 11/07/22 06:15 Pulse Ox 96 11/07/22 06:15 Time Spent Time spent with Patient: <40 minutes Time was spent: obtaining and/or reviewing separately otained hiistory and counseling the patient
--- NOTE | 2022-11-07 07:12 | ANES.PREOP_ITS ---
General Info Date of Service Date Performed: 11/07/22 Height: 5 ft 7 in Weight: 120.9 kg Body Mass Index (BMI): 41.7 Surgical Procedure: Operation Date: 11/07/22 07:40 Proposed Procedure Side Surgeon p Cystoscopy/Coaptite Injection to Bladder Neck Suleman Valera MD Meds Allergies and Home Medications Allergies Allergy/AdvReac Type Severity Reaction Status Date / Time gabapentin AdvReac increased Verified 11/07/22 06:11 falls at higher doses metformin AdvReac gas, Verified 11/07/22 06:11 bloating, diarrhea Home Medication Medication Instructions Recorded Cymbalta 60 mg capsule,delayed 60 mg PO DAILY 06/04/16 release (duloxetine) Tylenol 325 mg tablet 650 mg PO Q6H PRN 06/04/16 (acetaminophen) multivitamin 1 ea PO DAILY 06/04/16 omeprazole 20 mg capsule,delayed 20 mg PO DAILY 06/04/16 release pravastatin 40 mg tablet 40 mg PO DAILY 06/04/16 bupropion HCl 150 mg 24 hr tablet, 150 mg PO QAM 06/26/21 extended release lisinopril 10 mg tablet 10 mg PO DAILY 06/26/21 Celebrex 200 mg capsule (celecoxib) 400 mg PO DAILY 08/28/21 melatonin 5 mg capsule 5 mg PO HS PRN 08/28/21 glipizide 5 mg tablet 20 mg PO DAILY 09/17/21 mirabegron 25 mg tablet,extended 25 mg PO DAILY #28 tabs 01/01/22 release 24 hr (Myrbetriq) estradiol 2 mg (7.5 mcg/24 hour) 1 vag ring vaginal [id number] #1 ea 10/09/22 vaginal ring (Estring) Current Visit Medications: Current Medications Generic Name Dose Route Start Last Admin Trade Name Freq PRN Reason Stop Dose Admin Ringer's Solution 1,000 mls @ 80 mls/hr 11/07/22 06:00 11/07/22 06:45 IV 12/06/22 23:59 80 mls/hr INFUSION NOAM Administration IV Miscellaneous Supplies 1 each 11/07/22 06:00 Iv Access IV 12/06/22 23:59 DIRECTED NOAM Sodium Chloride 0 ml 11/07/22 06:00 Normal Saline Flush 10 Ml Syr IV 12/06/22 23:59 PRN PRN Sodium Chloride 0 ml 11/07/22 06:00 Normal Saline 10 Ml Vial IJ 12/06/22 23:59 DIRECTED PRN Sterile Water 0 ml 11/07/22 06:00 Water,Injection,Sterile 10 Ml Vial IJ 12/06/22 23:59 DIRECTED PRN Trimethoprim/Sulfamethoxazole 1 tab 11/07/22 06:00 11/07/22 06:44 Sulfameth/Trimeth Ds Tab PO 11/07/22 18:00 1 tab PREOP NOAM Administration PFSH Active Problems Active Problems: Problem Status Onset Code Bladder prolapse Stress incontinence (female) (male) N39.3 Obesity E66.9 Mixed stress and urge urinary incontinence N39.46 Hydronephrosis, right N13.30 Chest pain R07.9 Ureterolithiasis N20.1 Post surgical complication T81.9XXA HTN (hypertension) I10 DANN (acute kidney injury) N17.9 Medical History Medical History Depression Diabetes mellitus type 2, diet-controlled Family hx of colon cancer Mother, 85 Generalized osteoarthritis of multiple sites Spine, feet, shoulders GERD (gastroesophageal reflux disease) Glucose intolerance (impaired glucose tolerance) History of cervical dysplasia Hyperlipidemia Obstructive sleep apnea on CPAP Presence of pessary 80mm incontinence dish Right shoulder, extensive tendonitis Supraspinatus tear, conservative management Spinal stenosis Syncope Urinary incontinence Surgical History Surgical History Cholecystectomy (10/13/73) Colonoscopy - MAC (07/01/16) History of cataract extraction History of right shoulder replacement S/P ureteral stent placement Tobacco Smoking/Tobacco Use Status: Never Alcohol Alcohol Intake: current Alcohol intake frequency: holidays/special occasions only Substance Use Substance use: Never Substance use type: does not use Prental History History 2 Para 2 Hx # Term Pregnancies 2 Multiple births Hx # Pregnancies 0 Ectopic pregnancies AB induced 0 Hx Number of Living Children 2 AB spontaneous 0 Vital Signs and Lab Results Vital Signs Most Recent Vital Signs in EMR: Most Recent Vital Signs Temp Pulse Resp BP Pulse Ox 37.1 C 73 18 136/73 96 11/07/22 06:15 11/07/22 06:15 11/07/22 06:15 11/07/22 06:15 11/07/22 06:15 Point of Care Results Point of Care Results: Finger Stick Blood Glucose 161 11/07/22 06:49 Lab Results Blood Type / Crossmatch: No Data to Display Complete Blood Count: No Data to Display Complete Metabolic Panel: No Data to Display Liver Function Panel: No Data to Display Coagulation Panel: No Data to Display Cardiac Panel: No Data to Display Arterial Blood Gas: No Data to Display Venous Blood Gas: No Data to Display Pancreas Panel: No Data to Display Thyroid Panel: No Data to Display Infectious Disease: No Data to Display Blood Cultures: No Data to Display Toxicology Panel: No Data to Display Imaging and Studies Imaging and Studies Study information below may be from another EMR and interpreted by another provider. Please see original notes in EMR for more complete details. EKG Summary: Conclusion Sinus rhythm...normal P axis, V-rate 50- 99 Normal Electrocardiogram 03/22/22 Stress Test Summary: 04/24/22 at [facility] No ischemia nor infarct. Preserved LV function. Anesthesia Assessment and Plan Anesthesia History Personal History: No History of Anesthesia Complications Family History: No Family History of Anesthesia Complications Exercise Tolerance Exercise Tolerance: Metabolic Equivalents<4 Pertinent Negatives Pertinent Negatives: No Symptoms of GERD and No Major Pulmonary Symptoms or Complaints Cardiac & Pulmonary Exam Cardiac Exam: Normal S1/S2 Heart Sounds Pulmonary Exam: Clear Bilateral Breath Sounds Implantable Cardiac Device Does patient have a Pacemaker or an ICD?: No Airway Exam Known Difficult Airway: No Mallampati Class: 1 Mouth Opening: Normal (> 3cm) Thyromental Distance: Greater than 3 cm Neck Range of Motion: Full ROM Neck Circumference: Normal Teeth Condition: Normal Dentition ASA Classification ASA Score: ASA 3 Emergency Case?: No NPO Status NPO Status: NPO Clears >2 hours, Solids >8 hours Anesthesia Plan Resuscitation Status: Full Code Anesthesia Technique: General Anesthesia Airway Planned: Natural Airway Monitors Used: Standard Monitors Preoperative Comments:: Chest pain and Positive D-dimer with hypotension postoperatively on 03/21/22. ER visit post op with negative troponins x 2 and negative EKG, observed overnight. Extremity venous study negative bilaterally for DVT on 03/22/22. Stress test as outpatient also negative. No further episodes of chest discomfort per patient.
[2022-11-07 07:26] VITALS: BMI 41.7
[2022-11-07] MEDS: Lidocaine 2% Jelly 6 ML SYR (07:47)
--- NOTE | 2022-11-07 07:59 | W.PM.DSUDISC ---
Date of service: 11/07/22 Time of Service: 07:59 Discharge Plan Disposition Patient Disposition: Home Condition: Stable Discharge Details Reason For Visit: cystoscopy with injection of Coaptite Attending Provider: Suleman Valera Primary Care Provider: Erin Mei Home Meds and New Rx's Prescriptions: No Action melatonin 5 mg capsule 5 mg PO HS PRN lisinopril 10 mg tablet 10 mg PO DAILY bupropion HCl 150 mg tablet extended release 24 hr 150 mg PO QAM glipizide 5 mg tablet 20 mg PO DAILY Myrbetriq 25 mg tablet extended release 24 hr 25 mg PO DAILY Qty: 28 0RF Rx Instructions: Samples Estring 2 mg (7.5 mcg /24 hour) ring 1 vag ring vaginal [id number] Qty: 1 4RF acetaminophen [Tylenol] 325 MG tablet 650 mg PO Q6H PRN pravastatin 40 MG tablet 40 mg PO DAILY omeprazole 20 MG capsule,delayed release(DR/EC) 20 mg PO DAILY multivitamin 1 EACH capsule 1 ea PO DAILY duloxetine [Cymbalta] 60 MG capsule,delayed release(DR/EC) 60 mg PO DAILY celecoxib [Celebrex] 200 mg capsule 400 mg PO DAILY Discharge Instructions Additional Instructions: no appointment needed but ask pt to call in @ 1 week with progress report Activity:: Activity as Tolerated Shower/Bathe:: 24 hours Diet:: As Tolerated Discharge Orders Discharge Orders: Discharge Order (Routine); Ordered 11/07/22 Ordered By: Suleman Valera Discharge Data Discharge Comment: pt must void prior to discharge DS: Diagnosis Discharge Diagnosis (1) Mixed stress and urge urinary incontinence: Status: Acute
--- NOTE | 2022-11-07 08:04 | ROE_ITS ---
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 She is on Myrbetriq for the urgency component of her incontinence. She has had some improvement with an injection of Coaptite for the ISD component of her incontinence. Her ISD symptoms have since returned and she presents for repeat injection. Findings: some residual Coaptite from prior injection Procedure Description: The patient is given an oral antibiotic. She is brought to the operating room on 11/07/2022. After successful induction of general anesthesia without intubation, she was placed in the dorsal lithotomy position. Her genitalia is prepped and draped. 2% Xylocaine jelly is instilled into the urethra to act as a local anesthetic. A 20 Pashto urethrotome sheath was passed through the urethra into the bladder. The urethra and bladder were inspected with a 30 degree lens. Both ureteral orifices appeared normal with no blood coming from either side. The bladder was smooth-walled with no papillary or nodular lesions. At the bladder neck, some residual coapt tight could be visualized beneath the mucosa. Using a side kick needle, we injected an additional vial of Coaptite submucosally in order to close the bladder neck mucosa at rest. The scope was removed. Bladder was drained with a 14 Pashto straight catheter. The patient tolerated the procedure well with no complications.
[2022-11-07 08:14] VITALS: BP 129/61; PULSE 70; RESP 20; TEMP 36.4; O2SAT 98
--- NOTE | 2022-11-07 08:23 | W.ANESPOSTOP ---
Postoperative Evaluation Date, Time and Location Date Performed: 11/07/22 Time Performed: : Patient Location: Day Surgery Unit Vital Signs Most Recent Imported Vital Signs: Most Recent Vital Signs Temp Pulse Resp BP Pulse Ox 36.4 C L 70 20 129/61 98 11/07/22 08:14 11/07/22 08:14 11/07/22 08:14 11/07/22 08:14 11/07/22 08:14 Pain Score Most Recent Pain Score: Most Recent Pain Score Pain Level 0 11/07/22 08:14 Assessment Mental Status: Awake (Alert & Oriented to Patient Baseline) Airway and Respiratory Function: Patent airway with normal (patient baseline) respiratory exam Cardiovascular Function: Hemodynamically Stable Hydration Status: Adequately Hydrated Nausea & Vomiting: No Nausea or Vomiting Pain: Pt. Denies Any Pain Peripheral Nerve Block: Patient did not receive a nerve block
[2022-11-07 08:45] VITALS: BP 132/63; PULSE 70; RESP 18; TEMP 36.5; O2SAT 99
== END 2022-11-07 09:20 | disposition home or self-care (01) ==
PROVIDERS: PCP Family Medicine; Visit Provider Urology
PROC: (CPT 51715; principal; 2022-11-07 07:30)
DX: N36.42 Intrinsic sphincter deficiency (ISD) (principal); N39.46 Mixed incontinence; E11.9 Type 2 diabetes mellitus without complications; E66.9 Obesity, unspecified; Z68.41 Body mass index [BMI] 40.0-44.9, adult
CPT/HCPCS: 51715; L8606

== ENCOUNTER → 2023-01-29 08:27 | Outpatient (BNVA) | payer MEDICARE, BC, SELFPAY | PROVIDERS: PCP Family Medicine; Referring Provider Family Medicine; Visit Provider Nurse Practitioner Gerontology | DX: N39.3 Stress incontinence (female) (male) (principal) | CPT/HCPCS: 99441 ==

== ENCOUNTER → 2023-03-19 07:34 | Outpatient (BNVA) | payer MEDICARE, BC, SELFPAY | PROVIDERS: PCP Family Medicine; Visit Provider Nurse Practitioner Gerontology | DX: N39.46 Mixed incontinence (principal); Z96.0 Presence of urogenital implants | CPT/HCPCS: 99442 ==

== ENCOUNTER 2023-03-27 06:15 | Day surgery (SDC) | payer MEDICARE, BC, SELFPAY ==
[2023-03-27] MEDS: Lidocaine 2% Jelly 6 ML SYR (07:46)
[2023-03-27 08:37] VITALS: BP 130/62; PULSE 69; RESP 16; TEMP 36.4; O2SAT 99
--- NOTE | 2023-03-27 09:13 | W.ANESPOSTOP ---
Postoperative Evaluation Date, Time and Location Date Performed: 03/27/23 Time Performed: 09:13 Patient Location: Day Surgery Unit Vital Signs Most Recent Imported Vital Signs: Most Recent Vital Signs Temp Pulse Resp BP Pulse Ox 36.4 C L 69 16 130/62 99 03/27/23 08:37 03/27/23 08:37 03/27/23 08:37 03/27/23 08:37 03/27/23 08:37 Pain Score Most Recent Pain Score: Most Recent Pain Score Pain Level 0 03/27/23 08:37 Assessment Mental Status: Awake (Alert & Oriented to Patient Baseline) Airway and Respiratory Function: Patent airway with normal (patient baseline) respiratory exam Cardiovascular Function: Hemodynamically Stable Hydration Status: Adequately Hydrated Nausea & Vomiting: No Nausea or Vomiting Pain: Pt. Denies Any Pain Peripheral Nerve Block: Patient did not receive a nerve block
--- NOTE | 2023-03-27 10:58 | ROE_ITS ---
Date of service: 03/27/23 Time of Service: 10:58 Operative Note Operative Note DATE OF PROCEDURE: 03/27/23 PRE-OP DIAGNOSIS: Urinary incontinence due to intrinsic sphincter deficiency POST-OP DIAGNOSIS: same PROCEDURE: Cystoscopy with transurethral injection of bulking agent at bladder neck SURGEON: Suleman Valera ANESTHESIA TYPE: General:No Airway Refer to Anesthesia Record ESTIMATED BLOOD LOSS: 0 PATHOLOGY: none sent COMPLICATIONS: None Patient was transported to: same day Patient's condition: stable Implants: 2.25 cc of Coaptite Indications: This is a 72-year-old woman who has a history of mixed urinary incontinence. She is on Myrbetriq for the urgency portion of her incontinence. She has received injections of bulking agents at the bladder neck for the ISD component of her incontinence. Her last injection helped her symptoms, but her symptoms have begun to recur. She presents for repeat injection Findings: Some residual Coaptite at bladder neck Procedure Description: The patient was brought to the operating room on 03/27/2023. She was given a single dose of p.o. antibiotics. After successful induction of general anesthesia without intubation, she was placed in the dorsal lithotomy position. Her genitalia was prepped and draped. 2% Xylocaine jelly was instilled into the urethra to act as a local anesthetic. A 20 Malagasy urethrotome sheath was passed through the urethra into the bladder. The bladder was inspected with a 30 degree lens. The bladder neck showed some residual Coaptite beneath the mucosa. Even with the presence of the Coaptite, the bladder neck did not appear completely closed at rest. We then used a transurethral injection system to inject a total of 2.25 mL of Coaptite submucosally. We injected in 3 different locations. The bladder neck appeared more closed at rest following the procedure. The scope was removed and the bladder was drained with a 14 Malagasy catheter. The patient tolerated this procedure well with no complications.
== END 2023-03-27 09:25 | disposition home or self-care (01) ==
PROVIDERS: PCP Family Medicine; Visit Provider Urology
PROC: (CPT 51715; principal; 2023-03-27 07:30)
DX: N36.42 Intrinsic sphincter deficiency (ISD) (principal); N39.46 Mixed incontinence
CPT/HCPCS: 51715; J2704; L8606

== ENCOUNTER → 2023-04-21 14:52 | Outpatient (BNVA) | payer MEDICARE, BC, SELFPAY | PROVIDERS: PCP Family Medicine; Referring Provider Family Medicine; Visit Provider Nurse Practitioner Gerontology | DX: N39.46 Mixed incontinence (principal) | CPT/HCPCS: 99442 ==

== ENCOUNTER → 2023-05-13 08:26 | Outpatient (BNVA) | payer MEDICARE, BC, SELFPAY | PROVIDERS: PCP Family Medicine; Referring Provider Family Medicine; Visit Provider Nurse Practitioner Gerontology | DX: N39.46 Mixed incontinence (principal); N81.10 Cystocele, unspecified; I10 Essential (primary) hypertension | CPT/HCPCS: 99442 ==